=== PATIENT | female | born 1990 | race Caucasian/White ===

== ENCOUNTER 2018-01-03 20:49 | Emergency (ER) | payer OTHER, SELFPAY ==
[2018-01-03 20:59] VITALS: BP 140/96; PULSE 118; RESP 19; TEMP 37.1; O2SAT 100; BMI 36.9
--- NOTE | 2018-01-03 21:44 | PC.NURSE ---
pt reports being a total of 4 times. Three ended in miscarrage. current >6wk. reports bleeding alot since the 22 of november. Yesterday pt was seen at [facility] for waterfall vaginal bleeding that wouldn't stop. reports several very large clots discharged, uncertain of total number. pt thinks she is bleeding in vaginal cavity where it clots then my body pushes the clots out. Reports previous ended in miscarrage after several days of bleeding and cramping. No cramping this time. pt denies n/v/ fever, vision changes, pain, SOB.
[2018-01-03 21:45] LABS: RBC Urine 0-1/HPF (0-5/HPF); Squamous Epithelial Cell Urine 0-1 /HPF; WBC Urine 0-1/HPF (0-5/HPF)
[2018-01-03 21:46] LABS: Bacteria Urine Occasional (0-1); Calcium Oxalate Crystals Urine Few; Culture Indicated Urine Cult Not Indicated; Mucus Urine 2+ (Negative)
--- NOTE | 2018-01-03 22:37 | DI.US.S_ITS ---
PROCEDURE: US OB <= 14 WEEKS FETUS INDICATIONS: bleeding preg OUTSIDE/PRIOR DATING DATA: Last menstrual period (LMP): Unknown. LMP-based estimated date of delivery (EARLENE): N./A.. First dating scan (date and location): 01/03/18. Estimated date of delivery (EARLENE) from first dating scan: 08/25/18. TECHNIQUE: Real-time scanning was performed of the fetus and maternal pelvic organs, with image documentation. Endovaginal scanning was also performed to better visualize the fetus and maternal ovaries. COMPARISON: None. FINDINGS: Embryo: Intrauterine is identified position within the endocervical canal with crown-rump length measuring 7 mm corresponding to 6 weeks 4 days. heart rate measured 120 beats per minute. Measurement variability in dating: +/- 4 weeks by LMP, +/- 7 days by mean sac diameter (use before 6 weeks gestation if crown-rump length not able to be measured), +/- 5 days by crown-rump length (up to 8 weeks 6 days gestation), +/- 7 days by crown-rump length (up to 13 weeks 6 days gestation). Maternal organs: Ovaries are not imaged.. Limited images through the kidneys demonstrate no hydronephrosis. IMPRESSION: Findings consistent with spontaneous in progress. Note: These findings are concordant with the preliminary interpretation. Dictated by: Fazal Laws [facility] Interpreted: George Rubalcava MD on 01/04/2018 at 7:48 Approved by: George Rubalcava M.D. on 01/04/2018 at 9:30
--- NOTE | 2018-01-03 22:38 | ED.PREGNANCY ---
HPI - General Chief complaint: OB/Uterine Contractions Stated complaint: 6 WKS , STATES HEMORRAGING Time Seen by Provider: 01/03/18 22:09 Source: patient and old records reviewed Mode of arrival: ambulatory Limitations: no limitations History of Present Illness HPI Narrative: Patient is a 27-year-old female who presents with vaginal bleeding. She states that she is about 6 weeks . She had a significant amount of bleeding yesterday she was seen evaluated at [facility] she had an ultrasound and blood work. Ultrasound revealed she had an IUP 6 weeks 2 days and had a small hemorrhage adjacent to the gestational sac. And beta quant was 39,555. She says she was scared to go sleep last night she was bleeding through her clothes and through the pad at the emergency department yesterday. Today she does kind of felt weak and tired. The bleeding has slowed down significantly today. She has no cramping. She was instructed to return for evaluation today by her OB. They can't see her till Thursday. Patient : Yes Related Data Allergies Allergy/AdvReac Type Severity Reaction Status Date / Time ondansetron Allergy Unknown ITCHY Unverified 07/22/17 12:11 [From ZOFRAN ( HYDROCHLORIDE)] Review of Systems Review of Systems All systems reviewed & are unremarkable except as noted in HPI and below Constitutional Reports fatigue and Reports lethargy Eyes Denies change in vision, Denies eye discharge, Denies irritation and Denies loss of vision Cardiovascular Denies chest pain, Denies irregular heart rhythm, Denies lightheadedness, Denies palpitations, Denies dyspnea, Denies dyspnea on exertion and Denies orthopnea Respiratory Denies cough, Denies dyspnea, Denies dyspnea on exertion and Denies wheezing Genitourinary Reports as per HPI Musculoskeletal Denies back pain, Denies muscle weakness, Denies numbness and Denies tingling Neurologic Denies loss of vision, Denies numbness and Denies tingling Endocrine Reports fatigue and Denies palpitations Allergic/Immunologic Denies wheezing PMFSH - Past Medical History Medical history: Reports no medical history Surgical history: Reports other (D&C) 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 RESPIRATORY: Breath sounds equal bilaterally, no wheezes rales or rhonchi. ABDOMEN: Soft, nontender. Normoactive bowel sounds all 4 quadrants. No guarding or rebound. EXTREMITIES: Normal range of motion, no clubbing or edema. Neurovascularly intact NEUROLOGICAL: Alert and oriented x4.Normal gait and speech. Cranial nerves II through XII grossly intact. SKIN: Warm, dry, no laceration, no petechiae, no rashes or lesions. Course Orders Ordered: ED Orders 01/03/18 21:20 Urine Microscopic Stat 01/03/18 22:37 US OB <= 14 weeks fetus Stat 01/03/18 23:19 ABO RH Type Stat Complete Blood Count AUTO DIFF Stat Comprehensive Metabolic Panel Stat HCG Quantitative Stat Vital Signs - 8 hr 01/03/18 20:59 01/04/18 00:33 Temperature 98.7 F Pulse Rate 118 H 98 H Respiratory Rate 19 16 Blood Pressure 140/96 H Blood Pressure [Right Arm] 131/80 Pulse Oximetry 100 MDM - OB/Uterine Contractions Lab Data Attestation: I reviewed the patient's lab results. Result diagrams: 01/03/18 23:19 01/03/18 23:19 Lab Results 01/03/18 01/03/18 01/03/18 Range/Units 21:20 23:19 23:19 WBC 10.8 (4.5-11.0) X10^3/uL RBC 3.25 L (4.0-5.2) X10^6/uL Hgb 9.5 L (12.0-16.0) g/dL Hct 27.9 L (36-46) % MCV 86.0 (80-100) fL MCH 29.4 (26-34) PG MCHC 34.2 (30-36) % RDW 13.1 (11.6-14.8) % Plt Count 272 (150-400) X10^3/uL Neut % (Auto) 67.3 (50-75) % Lymph % (Auto) 23.7 L (25-40) % [place] % (Auto) 7.9 (3-14) % Eos % (Auto) 0.8 L (2-4) % Baso % (Auto) 0.3 (0-2) % Neut # (Auto) 7300 H (0668-5542) /uL Sodium 141 (137-145) mmol/L Potassium 3.7 (3.4-5.1) mmol/L Chloride 103 (98-107) mmol/L Carbon Dioxide 27 (22-32) mmol/L BUN 13 (7-17) mg/dL Creatinine 0.80 (0.52-1.04) mg/dL Estimated GFR > 60.0 (>60) mL/min BUN/Creatinine Ratio 16.3 (6-22) Glucose 107 H (70-100) mg/dL Calcium 9.3 (8.4-10.2) mg/dL Total Bilirubin 0.3 (0.2-1.3) mg/dL AST 28 (14-36) IU/L ALT 35 (9-52) IU/L Alkaline Phosphatase 68 (38-126) U/L Total Protein 6.8 (6.3-8.2) g/dL Albumin 4.0 (3.5-5.0) g/dL Globulin 2.8 (1.7-4.1) g/dL Albumin/Globulin Ratio 1.4 (1.0-2.8) HCG, Quant 44858 mIU/mL Urine RBC 0-1/hpf (0-5/HPF) Urine WBC 0-1/hpf (0-5/HPF) Ur Squamous Epith Cells 0-1 /hpf Calcium Oxalate Crystal Few H (None) Urine Bacteria Occasional (0-1) (None) Urine Mucus 2+ H (Negative) Ur Culture Indicated? Cult not indicated Micro UA Comment Not Reportable Blood Type 01/03/18 Range/Units 23:19 WBC (4.5-11.0) X10^3/uL RBC (4.0-5.2) X10^6/uL Hgb (12.0-16.0) g/dL Hct (36-46) % MCV (80-100) fL MCH (26-34) PG MCHC (30-36) % RDW (11.6-14.8) % Plt Count (150-400) X10^3/uL Neut % (Auto) (50-75) % Lymph % (Auto) (25-40) % [place] % (Auto) (3-14) % Eos % (Auto) (2-4) % Baso % (Auto) (0-2) % Neut # (Auto) (6498-0712) /uL Sodium (137-145) mmol/L Potassium (3.4-5.1) mmol/L Chloride (98-107) mmol/L Carbon Dioxide (22-32) mmol/L BUN (7-17) mg/dL Creatinine (0.52-1.04) mg/dL Estimated GFR (>60) mL/min BUN/Creatinine Ratio (6-22) Glucose (70-100) mg/dL Calcium (8.4-10.2) mg/dL Total Bilirubin (0.2-1.3) mg/dL AST (14-36) IU/L ALT (9-52) IU/L Alkaline Phosphatase (38-126) U/L Total Protein (6.3-8.2) g/dL Albumin (3.5-5.0) g/dL Globulin (1.7-4.1) g/dL Albumin/Globulin Ratio (1.0-2.8) HCG, Quant mIU/mL Urine RBC (0-5/HPF) Urine WBC (0-5/HPF) Ur Squamous Epith Cells Calcium Oxalate Crystal (None) Urine Bacteria (None) Urine Mucus (Negative) Ur Culture Indicated? 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 Calculated gestational age 6 weeks 4 days. Technologist states the maternal ovaries appear within normal limits. I do not have images documenting visualize of the ovaries. No free fluid. Due to caudal location of the gestational sac findings concerning for threatened spontaneous . Follow-up suggested. MDM Narrative Medical decision making narrative: Discussed at length with patient. This is now her 4th miscarriage I recommend further testing. His she understand she is actually recommended for testing already this was an unplanned . So now she will wait 6 weeks and get testing and hopefully referral. Her hemoglobin hematocrit have decreased from yesterday compared to [facility] as blood work. She is no longer tachycardic she did not receive IV fluids. In the bleeding has stopped. I have recommended close follow-up with her Ob she has an appointment this week. Discharge Plan Departure Patient Disposition: Home Clinical Impression: Threatened Discharge Date/Time: 01/04/18 01:13 Interventions: ED Discharge Assessment Last Done: 01/04/18 01:12 Instructions: DI for Threatened Activity Restrictions/Additional Instructions: *You have been diagnosed with threatened *What to do: Ultrasound does show a fetus at the cervical os and he will likely miscarry Hemoglobin 9.5 hematocrit 27 [id number] Need to have blood work rechecked in the next 2-3 days *Continue to take medications as directed *Follow up with your OB in 2-3 days *Return to ER if you should have increased bleeding, cramping, dizziness, lightheadedness or any new, worsening or concerning symptoms Referrals: Leisa Jasso MD [Physician] - Frida Dennis PA-C [Primary Care Provider] -
--- NOTE | 2018-01-03 22:41 | ED_ITS ---
HPI - General Chief complaint: OB/Uterine Contractions Stated complaint: 6 WKS , STATES HEMORRAGING Time Seen by Provider: 01/03/18 22:09 Source: patient and old records reviewed Mode of arrival: ambulatory Limitations: no limitations History of Present Illness HPI Narrative: Patient is a 27-year-old female who presents with vaginal bleeding. She states that she is about 6 weeks . She had a significant amount of bleeding yesterday she was seen evaluated at [facility] she had an ultrasound and blood work. Ultrasound revealed she had an IUP 6 weeks 2 days and had a small hemorrhage adjacent to the gestational sac. And beta quant was 39,555. She says she was scared to go sleep last night she was bleeding through her clothes and through the pad at the emergency department yesterday. Today she does kind of felt weak and tired. The bleeding has slowed down significantly today. She has no cramping. She was instructed to return for evaluation today by her OB. They can't see her till Thursday. Patient : Yes Related Data Allergies Allergy/AdvReac Type Severity Reaction Status Date / Time ondansetron Allergy Unknown ITCHY Unverified 07/22/17 12:11 [From ZOFRAN ( HYDROCHLORIDE)] Review of Systems Review of Systems All systems reviewed & are unremarkable except as noted in HPI and below Constitutional Reports fatigue and Reports lethargy Eyes Denies change in vision, Denies eye discharge, Denies irritation and Denies loss of vision Cardiovascular Denies chest pain, Denies irregular heart rhythm, Denies lightheadedness, Denies palpitations, Denies dyspnea, Denies dyspnea on exertion and Denies orthopnea Respiratory Denies cough, Denies dyspnea, Denies dyspnea on exertion and Denies wheezing Genitourinary Reports as per HPI Musculoskeletal Denies back pain, Denies muscle weakness, Denies numbness and Denies tingling Neurologic Denies loss of vision, Denies numbness and Denies tingling Endocrine Reports fatigue and Denies palpitations Allergic/Immunologic Denies wheezing PMFSH - Past Medical History Medical history: Reports no medical history Surgical history: Reports other (D&C) 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 RESPIRATORY: Breath sounds equal bilaterally, no wheezes rales or rhonchi. ABDOMEN: Soft, nontender. Normoactive bowel sounds all 4 quadrants. No guarding or rebound. EXTREMITIES: Normal range of motion, no clubbing or edema. Neurovascularly intact NEUROLOGICAL: Alert and oriented x4.Normal gait and speech. Cranial nerves II through XII grossly intact. SKIN: Warm, dry, no laceration, no petechiae, no rashes or lesions. Course Orders Ordered: ED Orders 01/03/18 21:20 Urine Microscopic Stat 01/03/18 22:37 US OB <= 14 weeks fetus Stat 01/03/18 23:19 ABO RH Type Stat Complete Blood Count AUTO DIFF Stat Comprehensive Metabolic Panel Stat HCG Quantitative Stat Vital Signs - 8 hr 01/03/18 20:59 01/04/18 00:33 Temperature 98.7 F Pulse Rate 118 H 98 H Respiratory Rate 19 16 Blood Pressure 140/96 H Blood Pressure [Right Arm] 131/80 Pulse Oximetry 100 MDM - OB/Uterine Contractions Lab Data Attestation: I reviewed the patient's lab results. Result diagrams: 01/03/18 23:19 01/03/18 23:19 Lab Results 01/03/18 01/03/18 01/03/18 Range/Units 21:20 23:19 23:19 WBC 10.8 (4.5-11.0) X10^3/uL RBC 3.25 L (4.0-5.2) X10^6/uL Hgb 9.5 L (12.0-16.0) g/dL Hct 27.9 L (36-46) % MCV 86.0 (80-100) fL MCH 29.4 (26-34) PG MCHC 34.2 (30-36) % RDW 13.1 (11.6-14.8) % Plt Count 272 (150-400) X10^3/uL Neut % (Auto) 67.3 (50-75) % Lymph % (Auto) 23.7 L (25-40) % [place] % (Auto) 7.9 (3-14) % Eos % (Auto) 0.8 L (2-4) % Baso % (Auto) 0.3 (0-2) % Neut # (Auto) 7300 H (9675-1210) /uL Sodium 141 (137-145) mmol/L Potassium 3.7 (3.4-5.1) mmol/L Chloride 103 (98-107) mmol/L Carbon Dioxide 27 (22-32) mmol/L BUN 13 (7-17) mg/dL Creatinine 0.80 (0.52-1.04) mg/dL Estimated GFR > 60.0 (>60) mL/min BUN/Creatinine Ratio 16.3 (6-22) Glucose 107 H (70-100) mg/dL Calcium 9.3 (8.4-10.2) mg/dL Total Bilirubin 0.3 (0.2-1.3) mg/dL AST 28 (14-36) IU/L ALT 35 (9-52) IU/L Alkaline Phosphatase 68 (38-126) U/L Total Protein 6.8 (6.3-8.2) g/dL Albumin 4.0 (3.5-5.0) g/dL Globulin 2.8 (1.7-4.1) g/dL Albumin/Globulin Ratio 1.4 (1.0-2.8) HCG, Quant 43683 mIU/mL Urine RBC 0-1/hpf (0-5/HPF) Urine WBC 0-1/hpf (0-5/HPF) Ur Squamous Epith Cells 0-1 /hpf Calcium Oxalate Crystal Few H (None) Urine Bacteria Occasional (0-1) (None) Urine Mucus 2+ H (Negative) Ur Culture Indicated? Cult not indicated Micro UA Comment Not Reportable Blood Type 01/03/18 Range/Units 23:19 WBC (4.5-11.0) X10^3/uL RBC (4.0-5.2) X10^6/uL Hgb (12.0-16.0) g/dL Hct (36-46) % MCV (80-100) fL MCH (26-34) PG MCHC (30-36) % RDW (11.6-14.8) % Plt Count (150-400) X10^3/uL Neut % (Auto) (50-75) % Lymph % (Auto) (25-40) % [place] % (Auto) (3-14) % Eos % (Auto) (2-4) % Baso % (Auto) (0-2) % Neut # (Auto) (1940-8479) /uL Sodium (137-145) mmol/L Potassium (3.4-5.1) mmol/L Chloride (98-107) mmol/L Carbon Dioxide (22-32) mmol/L BUN (7-17) mg/dL Creatinine (0.52-1.04) mg/dL Estimated GFR (>60) mL/min BUN/Creatinine Ratio (6-22) Glucose (70-100) mg/dL Calcium (8.4-10.2) mg/dL Total Bilirubin (0.2-1.3) mg/dL AST (14-36) IU/L ALT (9-52) IU/L Alkaline Phosphatase (38-126) U/L Total Protein (6.3-8.2) g/dL Albumin (3.5-5.0) g/dL Globulin (1.7-4.1) g/dL Albumin/Globulin Ratio (1.0-2.8) HCG, Quant mIU/mL Urine RBC (0-5/HPF) Urine WBC (0-5/HPF) Ur Squamous Epith Cells Calcium Oxalate Crystal (None) Urine Bacteria (None) Urine Mucus (Negative) Ur Culture Indicated? 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 Calculated gestational age 6 weeks 4 days. Technologist states the maternal ovaries appear within normal limits. I do not have images documenting visualize of the ovaries. No free fluid. Due to caudal location of the gestational sac findings concerning for threatened spontaneous . Follow-up suggested. MDM Narrative Medical decision making narrative: Discussed at length with patient. This is now her 4th miscarriage I recommend further testing. His she understand she is actually recommended for testing already this was an unplanned . So now she will wait 6 weeks and get testing and hopefully referral. Her hemoglobin hematocrit have decreased from yesterday compared to [facility] as blood work. She is no longer tachycardic she did not receive IV fluids. In the bleeding has stopped. I have recommended close follow-up with her Ob she has an appointment this week. Discharge Plan Departure Patient Disposition: Home Clinical Impression: Threatened Discharge Date/Time: 01/04/18 01:13 Interventions: ED Discharge Assessment Last Done: 01/04/18 01:12 Instructions: DI for Threatened Activity Restrictions/Additional Instructions: *You have been diagnosed with threatened *What to do: Ultrasound does show a fetus at the cervical os and he will likely miscarry Hemoglobin 9.5 hematocrit 27 [id number] Need to have blood work rechecked in the next 2-3 days *Continue to take medications as directed *Follow up with your OB in 2-3 days *Return to ER if you should have increased bleeding, cramping, dizziness, lightheadedness or any new, worsening or concerning symptoms Referrals: Leisa Jasso MD [Physician] - Frida Dennis PA-C [Primary Care Provider] -
[2018-01-03 23:32] LABS: Add Manual Diff / Slide Review NO; Basophils Percent Auto 0.3 % (0-2); Eosinophils Percent Auto 0.8 % (2-4); Hematocrit 27.9 % (36-46); Hemoglobin 9.5 g/dL (12.0-16.0); Lymphocytes Percent Auto 23.7 % (25-40); Mean Corpuscular HGB Conc 34.2 % (30-36); Mean Corpuscular Hemoglobin 29.4 PG (26-34); Monocytes Percent Auto 7.9 % (3-14); Neutrophils Absolute Auto 7300 /uL (3000-5900); Neutrophils Percent Auto 67.3 % (50-75); Platelet Count 272 X10^3/uL (150-400); Red Blood Cell Count 3.25 X10^6/uL (4.0-5.2); Red Cell Distribution Width 13.1 % (11.6-14.8); White Blood Cell Count 10.8 X10^3/uL (4.5-11.0)
[2018-01-03 23:52] LABS: Alanine Aminotransferase 35 IU/L (9-52); Albumin Globulin Ratio 1.4 (1.0-2.8); Alkaline Phosphatase 68 U/L (38-126); Aspartate Aminotransferase 28 IU/L (14-36); BUN Creatinine Ratio 16.3 (6-22); Bilirubin Total 0.3 mg/dL (0.2-1.3); Blood Urea Nitrogen 13 mg/dL (7-17); Calcium 9.3 mg/dL (8.4-10.2); Carbon Dioxide 27 mmol/L (22-32); Chloride 103 mmol/L (98-107); Estimated Glomerular Filt Rate > 60.0 mL/min (>60); Globulin 2.8 g/dL (1.7-4.1); Glucose 107 mg/dL (70-100); HEMOLYSIS < 15 (0-50); Potassium 3.7 mmol/L (3.4-5.1); Sodium 141 mmol/L (137-145); Total Protein 6.8 g/dL (6.3-8.2)
[2018-01-04 00:33] VITALS: BP 131/80; PULSE 98; RESP 16
[2018-01-04 00:45] LABS: HCG Quantitative /Beta subunit 40109 mIU/mL
== END 2018-01-04 01:13 | disposition home or self-care (01) ==
PROVIDERS: Emergency Provider Emergency Medicine; Family Provider Physician Assistant Medical; PCP Physician Assistant Medical
DX: O20.0 Threatened abortion (principal); Z3A.01 Less than 8 weeks gestation of pregnancy
CPT/HCPCS: 36415; 76801; 76817; 80053; 81003; 81015; 81025; 84702; 85025; 86900; 86901; 99282; 99284

== ENCOUNTER 2018-01-04 20:10 | Observation (INO) | payer OTHER, SELFPAY ==
[2018-01-04] VITALS (15 sets, daily range): BP systolic 98–143; BP diastolic 61–86; PULSE 95–130; RESP 11–23; TEMP 36.7–37.6; O2SAT 97–100; BMI 36.9
--- NOTE | 2018-01-04 | PATH_ITS ---
[facility] Accession Number: [id number] . 01 Material submitted: . PRODUCTS OF CONCEPTION . 02 Diagnosis: Specimen Designated Products of Conception: Fragments of immature placental tissue with avascular chorionic villi admixed with fragments of decidual tissue and gravid endometrium. MRV/01/07/2018 . 02 Electronically signed: . Femi Perez MD, Pathologist NPI- [id number] . 01 Gross description: . Received in formalin, labeled products of conception, are multiple fragments of red-brown and gaspar tissue (10.7 x 3.0 x 0.4 cm in aggregate). No tissue is identified. Filtered and entirely submitted in cassettes A1-A4. ([id number]) /MRV . 02 Pathologist provided ICD-10: O02.1 . 02 CPT . 676966 Performed at: 01 [facility] [address] [facility], [place], [place] [id number] MD Tyrell Durham MD Phone: [phone] Performed at: 02 [facility] [address] [place], [place] [id number] MD Toni Armijo MD Phone: [phone]
[2018-01-04 20:36] LABS: Add Manual Diff / Slide Review NO; Basophils Percent Auto 0.6 % (0-2); Eosinophils Percent Auto 0.6 % (2-4); Hemoglobin 8.1 g/dL (12.0-16.0); Lymphocytes Percent Auto 17.8 % (25-40); Mean Corpuscular HGB Conc 33.7 % (30-36); Mean Corpuscular Hemoglobin 28.9 PG (26-34); Mean Corpuscular Volume 85.6 fL (80-100); Monocytes Percent Auto 7.8 % (3-14); Neutrophils Absolute Auto 9600 /uL (3000-5900); Neutrophils Percent Auto 73.2 % (50-75); Platelet Count 263 X10^3/uL (150-400); Red Blood Cell Count 2.81 X10^6/uL (4.0-5.2); Red Cell Distribution Width 13.5 % (11.6-14.8); White Blood Cell Count 13.1 X10^3/uL (4.5-11.0)
--- NOTE | 2018-01-04 20:37 | ED.PREGNANCY ---
HPI - General Chief complaint: Vaginal Bleeding Stated complaint: states blood loss Time Seen by Provider: 01/04/18 20:20 Source: patient and family Mode of arrival: ambulatory Limitations: no limitations History of Present Illness HPI Narrative: 27-year-old female, at 6 weeks presents with significant vaginal bleeding this afternoon. She started having pelvic cramping and spotting a few days ago and was evaluated at an outside facility. She presented to our emergency department yesterday under similar circumstances and complained of some dizziness and lightheadedness and the setting of increasing vaginal bleeding and some vaginal fullness. She had an ultrasound noting an IUP at 6 weeks and the endocervical canal and threatened . She was sent home and encouraged to follow up closely with Dr. Romero CROWE Complaint: vaginal bleeding Onset (ago): hour(s) Pain Consistency: constant Location: pelvis Severity: moderate Quality: Aching Relieving factors: none Exacerbating factors: none Associated symptoms: vaginal bleeding, malaise, shortness of breath and weakness Vaginal bleeding: heavy Patient : Yes OB History - Current : no complications OB History - Previous Pregnancies: miscarriage care: followed by OB Related Data : 4 Para: 0 Previous Rx's Medication Instructions Recorded oxycodone-acetaminophen [Percocet] 2 tab PO Q4-6H PRN #20 tab 01/04/18 Allergies Allergy/AdvReac Type Severity Reaction Status Date / Time ondansetron Allergy Unknown ITCHY Unverified 07/22/17 12:11 [From ZOFRAN ( HYDROCHLORIDE)] Review of Systems Review of Systems All systems reviewed & are unremarkable except as noted in HPI and below Constitutional Denies chills, Denies fever(s), Denies lethargy and Denies weakness Eyes Denies change in vision, Denies eye discharge, Denies irritation and Denies loss of vision ENT Ears, Nose, Mouth, and Throat: Denies change in voice, Denies neck pain and Denies sore throat Cardiovascular Denies chest pain, Denies irregular heart rhythm, Denies lightheadedness, Denies palpitations, Denies dyspnea, Denies dyspnea on exertion and Denies orthopnea Respiratory Denies cough, Denies dyspnea, Denies dyspnea on exertion and Denies wheezing Gastrointestinal Gastrointestinal: Denies abdominal pain, Denies change in bowel habits, Denies diarrhea, Denies nausea and Denies vomiting Genitourinary Reports abnormal vaginal bleeding, Denies hematuria, Denies flank pain, Denies urinary incontinence and Denies urinary urgency Musculoskeletal Denies neck pain Integumentary/Breasts Denies pruritus, Denies erythema, Denies rash and Denies wounds Neurologic Denies confusion, Denies loss of vision and Denies weakness Psychiatric Denies anxiety, Denies confusion, Denies depression, Denies homicidal ideation and Denies suicidal ideation Endocrine Denies palpitations Hematologic/Lymphatic Denies easy bruising Allergic/Immunologic Denies wheezing PMFSH - Past Medical History Medical history: Reports no medical history Surgical history: Reports other (D&C) Patient : Yes Family history: Reports other (No known family history of multiple miscarriages) Exam Narrative Exam Narrative: 27-year-old female obviously uncomfortable Initial Vital Signs Initial Vital Signs: Vital Signs Temperature 98.8 F 01/04/18 20:20 Pulse Rate 109 H 01/04/18 20:20 Respiratory Rate 20 01/04/18 20:20 Blood Pressure 143/81 H 01/04/18 20:20 Pulse Oximetry 100 01/04/18 20:20 Const General: cooperative and well developed Nutritional Appearance: well nourished Orientation: alert, awake, oriented x3 and not confused HENW[place] Head: normocephalic and atraumatic Ears: external ears normal and TM's normal bilaterally Nose: external nose normal and No nasal discharge Face and sinus: sinuses nontender, face symmetric, no sinus tenderness and No dry mucous membranes Mouth: oral mucosae normal and moist mucous membranes Teeth and gingiva: dentition normal Throat: tonsils normal and uvula midline Eyes General: appearance normal, both eyes and all related structures Eyelids: eyelids normal Conjunctivae: conjunctivae normal Sclera: sclerae normal Pupils: PERRL EOM: EOM intact bilaterally Neck Neck: normal visual inspection, trachea midline, No lymphadenopathy, No midline deformity and No JVD Lymphatic: No lymphedema Chest Chest: normal inspection of the chest Resp Effort & Inspection: normal respiratory effort, able to speak in complete sentences, no respiratory distress and no use of accessory muscles Auscultation: clear to auscultation bilaterally, no rales, no rhonchi and no wheezes Cardio Rate: regular rate Rhythm: regular rhythm Heart Sounds: no click, no gallops, no murmurs and no rubs Pulses: normal peripheral pulses GI Inspection: non-distended Palpation: soft, no hepatosplenomegaly, No guarding, No pulsatile mass and No tender Auscultation: normal bowel sounds Speculum Exam - Vagina: vaginal bleeding OB/External & Speculum: vaginal bleeding Back/Spine/Pelvis Back: No CVA tenderness Cervical Spine: cervical ROM normal and No pain with cervical ROM Thoracic/Lumbar Spine: thoracic and lumbar spine normal to inspection Skin General: no rashes or lesions noted, No jaundice and No petechiae Neuro General: alert, oriented x3, gait normal and no focal motor deficits Speech: speech normal Extrem General: full ROM, no clubbing, cyanosis or edema, no pedal edema and no calf tenderness Psych Appearance: well kempt Mental Status: mental status grossly normal Attitude: cooperative Thought Content: normal and suicidality Judgment: judgment good Course Orders Ordered: Discontinued Medications Acetaminophen (Tylenol) 325 mg PO NOW PRN PRN Reason: Pain, Mild (1-3) Hydrocodone Bitart/Acetaminophen (Hinkle 5/325) 1 tab PO Q30MIN PRN PRN Reason: Mild or moderate pain Fentanyl (Sublimaze) 25 mcg IV Q5MIN PRN PRN Reason: Pain, Mild (1-3) Last Admin: 01/04/18 23:23 Dose: 25 mcg Lactated Ringer's (Lactated Ringers) 1,000 mls @ 42 mls/hr IV CONT YOBANY Metoclopramide HCl (Reglan) 10 mg IV NOW PRN PRN Reason: Nausea And Vomiting Last Admin: 01/04/18 23:17 Dose: 10 mg Consultations Consultation #1: Immediately after performing pelvic exam I spoke with the patient's home tnt line supervisor, Dr. Jasso, whom said they do not typically provide fall to the circumstances and she is quite far away, she then recommends calling the local group Consultation #2: Dr. Delgado happy to help care for this patient and requests we call in the OR Vital Signs - 8 hr 01/04/18 23:05 01/04/18 23:07 01/04/18 23:12 Temperature Pulse Rate 130 H 130 H 124 H Respiratory Rate 11 L 12 11 L Blood Pressure 98/67 114/85 109/68 Pulse Oximetry 100 98 99 01/04/18 23:16 01/04/18 23:21 01/04/18 23:27 Temperature 98.6 F Pulse Rate 107 H 98 H 102 H Respiratory Rate 13 15 12 Blood Pressure 98/67 99/68 99/64 Pulse Oximetry 98 97 98 01/04/18 23:31 01/04/18 23:37 01/04/18 23:41 Temperature 98.1 F Pulse Rate 101 H 98 H 95 H Respiratory Rate 20 15 15 Blood Pressure 104/61 102/68 105/68 Pulse Oximetry 98 98 98 01/04/18 23:51 01/04/18 23:59 01/05/18 00:45 Temperature 98.2 F 99.3 F Pulse Rate 98 H 99 H 102 H Respiratory Rate 16 19 12 Blood Pressure 112/76 109/71 117/67 Pulse Oximetry 100 100 100 MDM - OB/Uterine Contractions Lab Data Result diagrams: 01/04/18 20:30 01/04/18 20:30 Lab Results 01/04/18 01/04/18 01/04/18 Range/Units 20:30 20:30 20:30 WBC 13.1 H (4.5-11.0) X10^3/uL RBC 2.81 L (4.0-5.2) X10^6/uL Hgb 8.1 L (12.0-16.0) g/dL Hct 24.0 L (36-46) % MCV 85.6 (80-100) fL MCH 28.9 (26-34) PG MCHC 33.7 (30-36) % RDW 13.5 (11.6-14.8) % Plt Count 263 (150-400) X10^3/uL Neut % (Auto) 73.2 (50-75) % Lymph % (Auto) 17.8 L (25-40) % [place] % (Auto) 7.8 (3-14) % Eos % (Auto) 0.6 L (2-4) % Baso % (Auto) 0.6 (0-2) % Neut # (Auto) 9600 H (0110-3459) /uL Sodium 139 (137-145) mmol/L Potassium 3.5 (3.4-5.1) mmol/L Chloride 102 (98-107) mmol/L Carbon Dioxide 25 (22-32) mmol/L BUN 11 (7-17) mg/dL Creatinine 0.80 (0.52-1.04) mg/dL Estimated GFR > 60.0 (>60) mL/min BUN/Creatinine Ratio 13.8 (6-22) Glucose 103 H (70-100) mg/dL Calcium 9.2 (8.4-10.2) mg/dL Total Bilirubin 0.3 (0.2-1.3) mg/dL AST 29 (14-36) IU/L ALT 42 (9-52) IU/L Alkaline Phosphatase 66 (38-126) U/L Total Protein 6.8 (6.3-8.2) g/dL Albumin 4.1 (3.5-5.0) g/dL Globulin 2.7 (1.7-4.1) g/dL Albumin/Globulin Ratio 1.5 (1.0-2.8) HCG, Quant 90968 mIU/mL Blood Type O Positive Antibody Screen Negative Crossmatch See Detail Discharge Plan Departure Patient Disposition: Admitted as Observation Clinical Impression: Abnormal vaginal bleeding Discharge Date/Time: 01/04/18 22:22 Interventions: ED Discharge Assessment Last Done: 01/04/18 22:30 Admit Date/Time: 01/04/18 21:59 Admit Provider: Lisa Delgado
--- NOTE | 2018-01-04 20:37 | PC.NURSE ---
pt seen here yesterday and diagnosed with threatened . pt has been bleeding for a few days. Had a DNC 11/11. this is the fourth miscarrage pt has experienced. pt reports being lightheaded and short of breath when trying to move around. she reports she has little spots and flashes in her vision.
--- NOTE | 2018-01-04 20:44 | DI.US.S_ITS ---
PROCEDURE: US PELVIC COMPLETE INDICATIONS: SAB IN PROGRESS; BLEEDING TECHNIQUE: Real-time scanning was performed of the pelvic organs, with image documentation. Additional endovaginal scanning was necessary due to incomplete visualization of the adnexal and endometrial structures by transabdominal scanning. COMPARISON: [facility], US, US OB <= 14 WEEKS FETUS, 01/03/2018, 23:09. FINDINGS: Transabdominal scanning: Limited scanning through the kidneys shows no hydronephrosis. No pathologic free abdominal or pelvic fluid. Endovaginal scanning: Uterus: Uterus is normal in size at 9.8 x 4.0 x 5.5 cm. The endometrium measures 12 mm in combined thickness. There is fluid within the endometrium cavity of the lowering uterine segment. Fluid is also present within the endovaginal canal. Ovaries: Not evaluated. IMPRESSION: Thickened endometrium with endometrial fluid in the lower uterine segment and in the vaginal canal, consistent with ongoing spontaneous . Dictated by: Rai Landis M.D. on 01/04/2018 at 21:50 Approved by: Rai Landis M.D. on 01/04/2018 at 21:55
[2018-01-04 20:55] LABS: Alanine Aminotransferase 42 IU/L (9-52); Albumin 4.1 g/dL (3.5-5.0); Albumin Globulin Ratio 1.5 (1.0-2.8); Alkaline Phosphatase 66 U/L (38-126); Aspartate Aminotransferase 29 IU/L (14-36); BUN Creatinine Ratio 13.8 (6-22); Bilirubin Total 0.3 mg/dL (0.2-1.3); Blood Urea Nitrogen 11 mg/dL (7-17); Calcium 9.2 mg/dL (8.4-10.2); Carbon Dioxide 25 mmol/L (22-32); Chloride 102 mmol/L (98-107); Estimated Glomerular Filt Rate > 60.0 mL/min (>60); Globulin 2.7 g/dL (1.7-4.1); Glucose 103 mg/dL (70-100); HEMOLYSIS < 15 (0-50); Potassium 3.5 mmol/L (3.4-5.1); Sodium 139 mmol/L (137-145); Total Protein 6.8 g/dL (6.3-8.2)
--- NOTE | 2018-01-04 21:02 | PC.NURSE ---
Stand by [facility] for pelvic exam with Dr. Drummond. Pt tolerated well. US now at bedside. Large amt red blood present.
[2018-01-04 21:36] LABS: HCG Quantitative /Beta subunit 36490 mIU/mL
--- NOTE | 2018-01-04 22:28 | PC.NURSE ---
PBRC started then surgery RAY Hernandez picked up pt and transported to surgery with blood continuing to run. Mary aware of 20 min vital check.
--- NOTE | 2018-01-04 22:30 | PC.NURSE ---
Blood continuing in surgery.
--- NOTE | 2018-01-04 22:59 | PM.PREOP ---
Pre-operative Note Interval Note Pre-op Check: Yes History & Physical exam performed today by Physician Changes: No
--- NOTE | 2018-01-04 22:59 | PM.GYNHP.1 ---
History of Present Illness Narrative: Viraj RAUSCH is a 27 year old female 4 para 0 with an incomplete miscarriage [facility] Social History Smoking Status: Former smoker Meds Home Medications Medication Instructions Recorded Confirmed Type oxycodone-acetaminophen [Percocet] 2 tab PO Q4-6H PRN #20 tab 01/04/18 Rx Allergies Allergy/AdvReac Type Severity Reaction Status Date / Time ondansetron Allergy Unknown ITCHY Unverified 07/22/17 12:11 [From ZOFRAN ( HYDROCHLORIDE)] Exam Vital Signs (past 8 hours): - 01/04/18 20:20 01/04/18 20:36 01/04/18 21:01 Temperature 98.8 F Pulse Rate 109 H 97 H 117 H Respiratory Rate 20 23 17 Blood Pressure 143/81 H Blood Pressure [Left Arm] 113/67 129/74 Pulse Oximetry 100 99 01/04/18 22:09 Temperature 99.6 F Pulse Rate 110 H Respiratory Rate 16 Blood Pressure 136/86 Blood Pressure [Left Arm] Pulse Oximetry Oxygen Delivery Method Room Air Narrative Exam Narrative: Generally: A well-developed, well-nourished female, in mild distress secondary to cramping Lungs: Clear to auscultation bilaterally Cardiovascular: Regular rate and rhythm Abdomen: Soft, slightly tender to deep palpation Bimanual exam: An 8 week size anteverted uterus. Large clots in the vagina and in the bed. Objective Labs Result Diagrams: 01/04/18 20:30 01/04/18 20:30 Labs: Laboratory Results - last 24 hr 01/04/18 01/04/18 01/04/18 20:30 20:30 20:30 WBC 13.1 H RBC 2.81 L Hgb 8.1 L Hct 24.0 L MCV 85.6 MCH 28.9 MCHC 33.7 RDW 13.5 Plt Count 263 Neut % (Auto) 73.2 Lymph % (Auto) 17.8 L [place] % (Auto) 7.8 Eos % (Auto) 0.6 L Baso % (Auto) 0.6 Neut # (Auto) 9600 H Sodium 139 Potassium 3.5 Chloride 102 Carbon Dioxide 25 BUN 11 Creatinine 0.80 Estimated GFR > 60.0 BUN/Creatinine Ratio 13.8 Glucose 103 H Calcium 9.2 Total Bilirubin 0.3 AST 29 ALT 42 Alkaline Phosphatase 66 Total Protein 6.8 Albumin 4.1 Globulin 2.7 Albumin/Globulin Ratio 1.5 HCG, Quant 00940 Blood Type O Positive Antibody Screen Negative Crossmatch See Detail Assessment & Plan (1) Incomplete : Current visit: Yes Status: Acute Plan: Assessment/Plan Narrative: Assessment: 27-year-old 4 para 0 with an incomplete AB Hemorrhage Significant drop in hematocrit with symptoms Plan: Suction D&C The risks, benefits, and alternatives to the procedure were explained to the patient. The risks including bleeding, infection, and uterine perforation. She understands these risks and agrees to proceed. A full capital P AR-Q was held and consent form was signed.
--- NOTE | 2018-01-04 23:02 | P.HPOB_ITS ---
History of Present Illness Narrative: Viraj RAUSCH is a 27 year old female 4 para 0 with an incomplete miscarriage [facility] Social History Smoking Status: Former smoker Meds Home Medications Medication Instructions Recorded Confirmed Type oxycodone-acetaminophen [Percocet] 2 tab PO Q4-6H PRN #20 tab 01/04/18 Rx Allergies Allergy/AdvReac Type Severity Reaction Status Date / Time ondansetron Allergy Unknown ITCHY Unverified 07/22/17 12:11 [From ZOFRAN ( HYDROCHLORIDE)] Exam Vital Signs (past 8 hours): - 01/04/18 20:20 01/04/18 20:36 01/04/18 21:01 Temperature 98.8 F Pulse Rate 109 H 97 H 117 H Respiratory Rate 20 23 17 Blood Pressure 143/81 H Blood Pressure [Left Arm] 113/67 129/74 Pulse Oximetry 100 99 01/04/18 22:09 Temperature 99.6 F Pulse Rate 110 H Respiratory Rate 16 Blood Pressure 136/86 Blood Pressure [Left Arm] Pulse Oximetry Oxygen Delivery Method Room Air Narrative Exam Narrative: Generally: A well-developed, well-nourished female, in mild distress secondary to cramping Lungs: Clear to auscultation bilaterally Cardiovascular: Regular rate and rhythm Abdomen: Soft, slightly tender to deep palpation Bimanual exam: An 8 week size anteverted uterus. Large clots in the vagina and in the bed. Objective Labs Result Diagrams: 01/04/18 20:30 01/04/18 20:30 Labs: Laboratory Results - last 24 hr 01/04/18 01/04/18 01/04/18 20:30 20:30 20:30 WBC 13.1 H RBC 2.81 L Hgb 8.1 L Hct 24.0 L MCV 85.6 MCH 28.9 MCHC 33.7 RDW 13.5 Plt Count 263 Neut % (Auto) 73.2 Lymph % (Auto) 17.8 L [place] % (Auto) 7.8 Eos % (Auto) 0.6 L Baso % (Auto) 0.6 Neut # (Auto) 9600 H Sodium 139 Potassium 3.5 Chloride 102 Carbon Dioxide 25 BUN 11 Creatinine 0.80 Estimated GFR > 60.0 BUN/Creatinine Ratio 13.8 Glucose 103 H Calcium 9.2 Total Bilirubin 0.3 AST 29 ALT 42 Alkaline Phosphatase 66 Total Protein 6.8 Albumin 4.1 Globulin 2.7 Albumin/Globulin Ratio 1.5 HCG, Quant 19198 Blood Type O Positive Antibody Screen Negative Crossmatch See Detail Assessment & Plan (1) Incomplete : Current visit: Yes Status: Acute Plan: Assessment/Plan Narrative: Assessment: 27-year-old 4 para 0 with an incomplete AB Hemorrhage Significant drop in hematocrit with symptoms Plan: Suction D&C The risks, benefits, and alternatives to the procedure were explained to the patient. The risks including bleeding, infection, and uterine perforation. She understands these risks and agrees to proceed. A full capital P AR-Q was held and consent form was signed.
--- NOTE | 2018-01-04 23:10 | SUR.OPER ---
Lithotomy on padded OR bed, head on pillow, arms secured on padded arm boards at <90 degrees abduction. Legs secured in padded yellow fins stirrups.
[2018-01-04] MEDS: METOCLOPRAMIDE 10 MG/2 ML INJ IV (23:17)
[2018-01-04] MEDS: fentaNYL 100 MCG/2 ML INJ 25 MCG IV (23:23)
--- NOTE | 2018-01-04 23:49 | SUR.PHASEI ---
2305 To PACU, arousing spontaneously, stated That's the fastest I've ever woken up. Moving freely, reminded to hold arm still for BP. Skin warm and dry, resp even and regular. C/O sore throat and feeling like she was still bleeding vaginally. 2310 Moderate amount of red drainage on peripad with half-dollar sized clot. Dr. Delgado informed, no orders given. 2317 Rx given for c/o nausea. Patient then stated that she wasn't sure if it was nausea or just the sore throat 2323 Rx given for c/o abdominal pain. Vag bleeding: one more clot, pad nearly saturated. 2340 No change in bryn-pad/vaginal bleeding, Patient drowsy. Skin warm and dry, 2345 Dr. Delgado checked in prior to departure, informed her that patient is stable. 2357 Flushing blood tubing. Patient sleeping, BP and HR as expected with fluid/transfusion.
--- NOTE | 2018-01-05 00:36 | SUR.PHASEI ---
0012 to acute care in bed, arouses easily to voice, mild cramping, sore throat is her bigger irritation. Report given to RN, transferred patient to bed. Call light given, Bed down and locked. Clothes were taken by upon pick-up from ER
--- NOTE | 2018-01-05 00:38 | SUR.PHASEI ---
0038 Recieved call from floor RN that patient was to be discharged to home. The orders were not seen in the computer when checked. CLAY TEMPERER will discharge patient from floor.
[2018-01-05 00:45] VITALS: BP 117/67; PULSE 102; RESP 12; TEMP 37.4; O2SAT 100
--- NOTE | 2018-01-05 00:57 | SUR.PHASEII ---
Taken to Acute care as opposed to phase II; Patient stable, scant red vag flow on bryn-pad. IV's dc'd x2. Fluids given. Spouse at bedside assisting patient with dressing and ambulating to bathroom.
--- NOTE | 2018-01-05 01:16 | SUR.PHASEII ---
Discharged from phase II (from acute care). Patient stable.
--- NOTE | 2018-01-05 18:51 | P.OP_ITS ---
Operative Date/Time/Diagnoses Date of procedure: 01/04/18 Time of procedure: 23:20 Pre-op diagnosis: Incomplete miscarriage Post-op diagnosis: same Procedure: Procedures Operation Date: 01/04/18 22:35 Actual Procedures Side Surgeon p Dilation and Curettage Lisa Delgado MD Indications: Incomplete miscarriage Brisk vaginal bleeding Significant drop in hematocrit with symptoms Surgeon: Lisa Delgado Anesthesia Type: General Operative Notes Findings: 8 week size anteverted uterus Large amount of products of conception Closure Type: not applicable Specimen(s): uterine contents (POC) Applied: catheter (In and out) Estimated blood loss (mL): 150 Blood products transfused: none Procedure in detail: After informed consent was obtained, the patient was taken to the operating room where she was placed in the dorsal supine position. After adequate general endotracheal anesthesia was achieved, she was placed in the dorsal lithotomy position, and prepped and draped in the usual sterile fashion. A time-out was performed. A bivalve speculum was placed into the vagina. A single-tooth tenaculum was placed on the anterior lip of the cervix. The cervix was open. The number 8 curved plastic curette passed easily into the endometrial cavity. Several passes with suction revealed a large amount of tissue and blood. The plastic curette was removed. Sharp curettage was performed yielding a large amount of tissue. Several more passes with suction revealed blood only. The instruments were removed from the uterus. The single- tooth tenaculum was removed from the anterior lip of the cervix. The bivalve speculum was removed from the vagina. Sponge, lap, and instrument counts were correct x2. The patient tolerated the procedure well, and was taken to PACU in stable condition. Complications: none Post-operative Condition: stable Disposition: PACU Plan for aftercare: Home after recovery
== END 2018-01-05 01:08 | disposition home or self-care (01) ==
LOC: ED 20:16 → AC 22:00
PROVIDERS: Admitting Provider Obstetrics & Gynecology; Emergency Provider Emergency Medicine; Family Provider Physician Assistant Medical; PCP Physician Assistant Medical; Visit Provider Obstetrics & Gynecology
PROC: (CPT 58120; principal; 2018-01-04 22:35)
DX: O03.4 Incomplete spontaneous abortion without complication (principal); Z3A.01 Less than 8 weeks gestation of pregnancy
CPT/HCPCS: 59812; 36430; 36591; 76830; 76856; 80053; 84702; 85025; 86850; 86900; 86901; 88305; 99282; 99284; G0378; P9016; J0330; J2250; J2590; J2704; J2765; J3010

== ENCOUNTER 2019-04-28 12:32 | Emergency (ER) | payer OTHER, SELFPAY ==
[2019-04-28 12:49] VITALS: BP 152/102; PULSE 105; RESP 16; TEMP 37.3; O2SAT 98; BMI 41.0
--- NOTE | 2019-04-28 12:51 | DI.US.S_ITS ---
PROCEDURE: US OB <= 14 WEEKS FETUS INDICATIONS: VAG BLEEDING 6 WEEKS PREG OUTSIDE/PRIOR DATING DATA: Last menstrual period (LMP): 03/17/19. LMP-based estimated date of delivery (EARLENE): 12/22/19. First dating scan (date and location): 04/28/19. Estimated date of delivery (EARLENE) from first dating scan: 12/24/19. TECHNIQUE: Real-time scanning was performed of the fetus and maternal pelvic organs, with image documentation. Endovaginal scanning was also performed to better visualize the fetus and maternal ovaries. COMPARISON: [facility], , OB <= 14 WEEKS FETUS, 01/03/2018, 23:09. FINDINGS: Embryo: A single intrauterine gestational sac is identified it has a mean gestational sac diameter of 1.03 cm, which correlates with an estimated gestational age of 5 weeks 5 days (EARLENE 12/24/19). A small yolk sac is visualized. However, a pole is not definitely seen, at this time. A small implantation hemorrhage is incidentally noted surrounding the gestational sac. Maternal organs: Ovaries are not enlarged or adequately evaluated. Corpus luteum on the right may be present. 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 Limited images through the kidneys demonstrate no hydronephrosis. IMPRESSION: 1. Single intrauterine gestational sac has an estimated gestational age of approximately 5 weeks 5 days (sonographic EARLENE 12/24/19), which is concordant with the LMP dates. 2. A pole is not yet identified. Followup imaging in 1 week is recommended to evaluate for viability. 3. Small implantation hemorrhage. 4. 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 Dictated by: Long Rolon M.D. on 04/28/2019 at 13:58 Approved by: Long Rolon M.D. on 04/28/2019 at 14:02
[2019-04-28 13:55] LABS: Add Manual Diff / Slide Review NO; Basophils Absolute Auto 0 /uL (0-100); Basophils Percent Auto 0.6 % (0-2); Eosinophils Absolute Auto 200 /uL (0-450); Eosinophils Percent Auto 1.9 % (2-4); Hematocrit 40.6 % (36-46); Hemoglobin 13.5 g/dL (12.0-16.0); Lymphocytes Absolute Auto 2000 /uL (1100-4500); Lymphocytes Percent Auto 22.1 % (25-40); Mean Corpuscular HGB Conc 33.2 % (30-36); Mean Corpuscular Hemoglobin 28.3 PG (26-34); Mean Corpuscular Volume 85.5 fL (80-100); Monocytes Absolute Auto 600 /uL (0-900); Monocytes Percent Auto 6.6 % (3-14); Neutrophils Absolute Auto 6100 /uL (1500-7000); Neutrophils Percent Auto 68.8 % (50-75); Platelet Count 308 X10^3/uL (150-400); Red Blood Cell Count 4.75 X10^6/uL (4.0-5.2); White Blood Cell Count 8.8 X10^3/uL (4.5-11.0)
[2019-04-28 14:08] LABS: Alanine Aminotransferase 48 IU/L (<35); Albumin 4.6 g/dL (3.5-5.0); Albumin Globulin Ratio 1.4 (1.0-2.8); Alkaline Phosphatase 91 U/L (38-126); Aspartate Aminotransferase 41 IU/L (14-36); BUN Creatinine Ratio 18.3 (6-22); Bilirubin Total 0.4 mg/dL (0.2-1.3); Blood Urea Nitrogen 11 mg/dL (7-17); Calcium 9.8 mg/dL (8.4-10.2); Carbon Dioxide 25 mmol/L (22-32); Chloride 102 mmol/L (98-107); Estimated Glomerular Filt Rate > 60.0 mL/min (>60); Globulin 3.4 g/dL (1.7-4.1); Glucose 91 mg/dL (70-100); HEMOLYSIS < 15 (0-50); Sodium 138 mmol/L (137-145)
[2019-04-28 14:24] LABS: HCG Quantitative /Beta subunit 8365.7 mIU/mL
--- NOTE | 2019-04-28 15:04 | ED_ITS ---
HPI - <Mary Sol PA-C - Last Filed: 04/28/19 20:53> General Chief complaint: OB/Uterine Contractions Stated complaint: 6 WEEKS PREG AND POSSIBLE MISCARRIAGE Time Seen by Provider: 04/28/19 15:03 Source: patient Mode of arrival: Ambulatory Limitations: no limitations History of Present Illness HPI Narrative: This 29-year-old female comes to ED secondary to concern for pending miscarriage, states her OB directed her. She states that LM P was March 17. She states that she has had pelvic cramping throughout this , maybe slightly worse in the last couple of days, similar in quality. She states that she started have some dark brown spotting on , and has had intermittent bright red spotting since Thursday. She states that she has not had any persistent nausea or vomiting. She denies any fever or urinary symptoms. She has had 4 miscarriages previously. She states she has had some cough and cold symptoms recently which seemed to be improving, no other +on ROS. Related Data Allergies Allergy/AdvReac Type Severity Reaction Status Date / Time ondansetron Allergy Unknown ITCHY Verified 04/28/19 12:49 [From ZOFRAN ( HYDROCHLORIDE)] Review of Systems <Mary Sol PA-C - Last Filed: 04/28/19 20:53> Review of Systems ROS Unobtainable: All systems reviewed & are unremarkable except as noted in HPI and below PMFSH - <Mary Sol PA-C - Last Filed: 04/28/19 20:53> Past Medical History Medical history: Reports other (Fibromyalgia) Surgical history: Reports other (D&C) Family History Family history: Reports other (No known family history of multiple miscarriages) Exam <Mary Sol PA-C - Last Filed: 04/28/19 20:53> Narrative Exam Narrative: GENERAL APPEARANCE: Patient sitting comfortably, in no distress. HEENT: PERRL, EOMI NECK: Supple LUNGS: Clear to auscultation bilaterally. HEART: Rate and rhythm regular, normal S1 and S2, no S3 or S4. ABDOMEN: Soft, nondistended, bowel sounds present x 4 quadrants, no masses palpable, mild suprapubic tenderness without guarding or rebound EXTREMITIES: No edema DERMATOLOGIC: No jaundice or exanthem NEUROLOGIC: Alert and oriented with normal speech and coordination : Normal external genitalia, cervical os appears to be closed with very scant brown discharge/blood Initial Vital Signs Initial Vital Signs: Vital Signs Temperature 99.2 F 04/28/19 12:49 Pulse Rate 105 H 04/28/19 12:49 Respiratory Rate 16 04/28/19 12:49 Blood Pressure 152/102 H 04/28/19 12:49 Pulse Oximetry 98 04/28/19 12:49 <Maritza Sanchez MD - Last Filed: 05/02/19 12:19> Initial Vital Signs Initial Vital Signs: Vital Signs Temperature 99.2 F 04/28/19 12:49 Pulse Rate 105 H 04/28/19 12:49 Respiratory Rate 16 04/28/19 12:49 Blood Pressure 152/102 H 04/28/19 12:49 Pulse Oximetry 98 04/28/19 12:49 Course <Mary Sol PA-C - Last Filed: 04/28/19 20:53> Course Additional Information: I spoke with Dr. Sanabria underground mining section foreman for Dr. Card, reviewed findings and history and he agrees that patient needs close follow-up. Patient will rest at home tonight, call their 1st thing in the morning so she can have repeat hCG and follow-up visit. Orders Ordered: ED Orders 04/28/19 12:51 US OB <= 14 weeks fetus Stat 04/28/19 13:45 ABO RH Type Stat Complete Blood Count AUTO DIFF Stat Comprehensive Metabolic Panel Stat HCG Quantitative /Beta subunit Stat Vital Signs Vital signs: Vital Signs - 8 hr 04/28/19 15:37 Pulse Rate 91 H Respiratory Rate 16 Blood Pressure [Left Arm] 144/75 H Pulse Oximetry 100 <Maritza Sanchez MD - Last Filed: 05/02/19 12:19> Orders Ordered: ED Orders 04/28/19 12:51 US OB <= 14 weeks fetus Stat 04/28/19 13:45 ABO RH Type Stat Complete Blood Count AUTO DIFF Stat Comprehensive Metabolic Panel Stat HCG Quantitative /Beta subunit Stat Vital Signs Vital signs: Vital Signs - 8 hr 04/28/19 15:37 Pulse Rate 91 H Respiratory Rate 16 Blood Pressure [Left Arm] 144/75 H Pulse Oximetry 100 MDM - OB/Uterine Contractions <Mary Sol PA-C - Last Filed: 01/16/20 20:53> Lab Data Attestation: I reviewed the patient's lab results. Result diagrams: 04/28/19 13:45 04/28/19 13:45 Labs: Lab Results 04/28/19 04/28/19 04/28/19 Range/Units 13:45 13:45 13:45 WBC 8.8 (4.5-11.0) X10^3/uL RBC 4.75 (4.0-5.2) X10^6/uL Hgb 13.5 (12.0-16.0) g/dL Hct 40.6 (36-46) % MCV 85.5 (80-100) fL MCH 28.3 (26-34) PG MCHC 33.2 (30-36) % RDW 14.0 (11.6-14.8) % Plt Count 308 (150-400) X10^3/uL Neut % (Auto) 68.8 (50-75) % Lymph % (Auto) 22.1 L (25-40) % Ashley % (Auto) 6.6 (3-14) % Eos % (Auto) 1.9 L (2-4) % Baso % (Auto) 0.6 (0-2) % Neut # (Auto) 6100 (3820-7076) /uL Lymph # (Auto) 2000 (3065-4598) /uL Ashley # (Auto) 600 (0-900) /uL Eos # (Auto) 200 (0-450) /uL Baso # (Auto) 0 (0-100) /uL Sodium 138 (137-145) mmol/L Potassium 4.0 (3.4-5.1) mmol/L Chloride 102 (98-107) mmol/L Carbon Dioxide 25 (22-32) mmol/L BUN 11 (7-17) mg/dL Creatinine 0.60 (0.52-1.04) mg/dL Estimated GFR > 60.0 (>60) mL/min BUN/Creatinine Ratio 18.3 (6-22) Glucose 91 (70-100) mg/dL Calcium 9.8 (8.4-10.2) mg/dL Total Bilirubin 0.4 (0.2-1.3) mg/dL AST 41 H (14-36) IU/L ALT 48 H (<35) IU/L Alkaline Phosphatase 91 (38-126) U/L Total Protein 8.0 (6.3-8.2) g/dL Albumin 4.6 (3.5-5.0) g/dL Globulin 3.4 (1.7-4.1) g/dL Albumin/Globulin Ratio 1.4 (1.0-2.8) HCG, Quant 8365.7 mIU/mL Blood Type O Positive Urine Dip Bedside Urine Glucose Negative Bedside Urine Bilirubin - Negative Bedside Urine Ketone - Negative Urine Specific Dresser 1.020 Bedside Urine Occult Blood ++ Bedside Urine pH 7.0 Bedside Urine Protein +/- 15 Bedside Urine Urobilinogen - Negative Bedside Urine Nitrite - Negative Bedside Urine Leukocytes - Negative Esterase Imaging Data US - OB: Radiologist's Impression: [address] [address] Ultrasound Report Signed Patient: Viraj Coyle EMR#: [id number] : 1990Acct:[id number] Age/Sex: 29 / FDate of Service: 04/28/19 Loc: ED Accession Number: [id number] Procedure: US OB <= 14 weeks fetus Ordering Provider: Maritza Sanchez MD PROCEDURE: US OB <= 14 WEEKS FETUS INDICATIONS: VAG BLEEDING 6 WEEKS PREG OUTSIDE/PRIOR DATING DATA: Last menstrual period (LMP): 03/17/19. LMP-based estimated date of delivery (EARLENE): 12/22/19. First dating scan (date and location): 04/28/19. Estimated date of delivery (EARLENE) from first dating scan: 12/24/19. TECHNIQUE: Real-time scanning was performed of the fetus and maternal pelvic organs, with image documentation. Endovaginal scanning was also performed to better visualize the fetus and maternal ovaries. COMPARISON: [facility], , US OB <= 14 WEEKS FETUS, 01/03/2018, 23:09. FINDINGS: Embryo: A single intrauterine gestational sac is identified it has a mean gestational sac diameter of 1.03 cm, which correlates with an estimated gestational age of 5 weeks 5 days (EARLENE 12/24/19). A small yolk sac is visualized. However, a pole is not definitely seen, at this time. A small implantation hemorrhage is incidentally noted surrounding the gestational sac. Maternal organs: Ovaries are not enlarged or adequately evaluated. Corpus luteum on the right may be present. 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 Limited images through the kidneys demonstrate no hydronephrosis. IMPRESSION: 1. Single intrauterine gestational sac has an estimated gestational age of approximately 5 weeks 5 days (sonographic EARLENE 12/24/19), which is concordant with the LMP dates. 2. A pole is not yet identified. Followup imaging in 1 week is recommended to evaluate for viability. 3. Small implantation hemorrhage. 4. 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 Dictated by: Long Rolon M.D. on 04/28/2019 at 13:58 Approved by: Long Rolon M.D. on 04/28/2019 at 14:02 <Maritza Sanchez MD - Last Filed: 05/02/19 12:19> Lab Data Labs: Lab Results 04/28/19 04/28/19 04/28/19 Range/Units 13:45 13:45 13:45 WBC 8.8 (4.5-11.0) X10^3/uL RBC 4.75 (4.0-5.2) X10^6/uL Hgb 13.5 (12.0-16.0) g/dL Hct 40.6 (36-46) % MCV 85.5 (80-100) fL MCH 28.3 (26-34) PG MCHC 33.2 (30-36) % RDW 14.0 (11.6-14.8) % Plt Count 308 (150-400) X10^3/uL Neut % (Auto) 68.8 (50-75) % Lymph % (Auto) 22.1 L (25-40) % Ashley % (Auto) 6.6 (3-14) % Eos % (Auto) 1.9 L (2-4) % Baso % (Auto) 0.6 (0-2) % Neut # (Auto) 6100 (1185-5642) /uL Lymph # (Auto) 2000 (1436-8636) /uL Ashley # (Auto) 600 (0-900) /uL Eos # (Auto) 200 (0-450) /uL Baso # (Auto) 0 (0-100) /uL Sodium 138 (137-145) mmol/L Potassium 4.0 (3.4-5.1) mmol/L Chloride 102 (98-107) mmol/L Carbon Dioxide 25 (22-32) mmol/L BUN 11 (7-17) mg/dL Creatinine 0.60 (0.52-1.04) mg/dL Estimated GFR > 60.0 (>60) mL/min BUN/Creatinine Ratio 18.3 (6-22) Glucose 91 (70-100) mg/dL Calcium 9.8 (8.4-10.2) mg/dL Total Bilirubin 0.4 (0.2-1.3) mg/dL AST 41 H (14-36) IU/L ALT 48 H (<35) IU/L Alkaline Phosphatase 91 (38-126) U/L Total Protein 8.0 (6.3-8.2) g/dL Albumin 4.6 (3.5-5.0) g/dL Globulin 3.4 (1.7-4.1) g/dL Albumin/Globulin Ratio 1.4 (1.0-2.8) HCG, Quant 8365.7 mIU/mL Blood Type O Positive Urine Dip Bedside Urine Glucose Negative Bedside Urine Bilirubin - Negative Bedside Urine Ketone - Negative Urine Specific Dresser 1.020 Bedside Urine Occult Blood ++ Bedside Urine pH 7.0 Bedside Urine Protein +/- 15 Bedside Urine Urobilinogen - Negative Bedside Urine Nitrite - Negative Bedside Urine Leukocytes - Negative Esterase Discharge Plan Departure Patient Disposition: Home Clinical Impression: Vaginal bleeding during , Threatened in first trimester Discharge Date/Time: 04/28/19 15:58 Instructions: DI for Vaginal Bleeding During Activity Restrictions/Additional Instructions: As we talked about, you should return to the ED if you have acutely worsening symptoms. Otherwise, I spoke with Dr. Sanabria who is on-call for Dr. Card today and he agrees that you need close follow-up. On your blood tests and ultrasound today, there is no clear miscarriage and findings are consistent with a 5 week and 5 day , however of course this is concerning given your history of miscarriage. He asked that you call 1st thing in the morning and let them know your in the emergency room and he said that you need to see Dr. Card for follow- up tomorrow and also have repeat blood test. Please remain off of work until you follow-up and discuss with Dr. Card Referrals: [employer] [Provider Group] Frida Dennis PA-C [Primary Care Provider] - Stand Alone Forms: Work Release Note
--- NOTE | 2019-04-28 15:31 | PC.NURSE ---
assisted NATALY Sol at bedside with needle punch machine operator helper exam, no bright red blood at time of exam, scant amount of brown mucus visualized
[2019-04-28 15:37] VITALS: BP 144/75; PULSE 91; RESP 16; O2SAT 100
== END 2019-04-28 15:58 | disposition home or self-care (01) ==
PROVIDERS: Emergency Medicine; Emergency Provider Internal Medicine; PCP Physician Assistant Medical
DX: O20.0 Threatened abortion (principal); Z3A.01 Less than 8 weeks gestation of pregnancy
CPT/HCPCS: 36415; 76801; 80053; 81003; 84702; 85025; 86900; 86901; 99283; 99284

== ENCOUNTER 2019-05-02 21:24 | Emergency (ER) | payer OTHER, SELFPAY ==
--- NOTE | 2019-05-02 21:27 | ED.PREGNANCY ---
HPI - General Chief complaint: OB/Uterine Contractions Stated complaint: 6 WKS BLEEDING AGAIN Time Seen by Provider: 05/02/19 21:27 Source: patient Mode of arrival: Ambulatory Limitations: no limitations History of Present Illness HPI Narrative: 21-year-old female nonsmoker with fibromyalgia presents with a chief complaint of cramping and vaginal bleeding. She is a at 6 weeks and all of her miscarriages is have happened prior to 13 weeks. She has been followed closely in was most recently seen few days ago with an ultrasound showing an IUP and a small implantation bleed. She had an hCG on the which was about 8000. She has had no fever chills. She is not dizzy nor weak or lightheaded. She does have some episodic lower cramping more on the left than the right. She has historically been [facility] by [facility]. She has blood through 1 pad today. MD Complaint: vaginal bleeding Onset (ago): day(s) Pain Consistency: intermittent Location: pelvis Severity: moderate Quality: Cramping Relieving factors: none Exacerbating factors: none Associated symptoms: vaginal bleeding Vaginal bleeding: heavy Patient : Yes OB History - Current : other OB History - Previous Pregnancies: miscarriage care: followed by OB Related Data Allergies Allergy/AdvReac Type Severity Reaction Status Date / Time ondansetron Allergy Unknown ITCHY Verified 04/28/19 12:49 [From ZOFRAN ( HYDROCHLORIDE)] Review of Systems Constitutional Constitutional: Denies chills, Denies fatigue, Denies fever(s), Denies frequent falls, Denies lethargy and Denies weakness Eyes Eyes: Denies change in vision, Denies eye discharge, Denies irritation and Denies loss of vision ENT Ears, Nose, Mouth, and Throat: Denies change in voice, Denies dizziness, Denies neck pain, Denies sore throat and Denies throat swelling Cardiovascular Cardiovascular: Denies chest pain, Denies irregular heart rhythm, Denies lightheadedness, Denies palpitations, Denies dyspnea, Denies dyspnea on exertion and Denies orthopnea Respiratory Respiratory: Denies cough, Denies dyspnea, Denies dyspnea on exertion and Denies wheezing Gastrointestinal Gastrointestinal: Denies abdominal pain, Denies change in bowel habits, Denies diarrhea, Denies nausea and Denies vomiting Genitourinary Genitourinary: Reports abnormal vaginal bleeding, Denies hematuria, Reports pelvic pain, Denies flank pain, Denies urinary incontinence and Denies urinary urgency Musculoskeletal Musculoskeletal: Denies back pain, Denies muscle weakness, Denies neck pain, Denies numbness and Denies tingling Integumentary/Breasts Skin/Breast: Denies pruritus, Denies erythema, Denies rash and Denies wounds Neurologic Neurologic: Denies behavioral changes, Denies confusion, Denies dizziness, Denies frequent falls, Denies loss of vision, Denies numbness, Denies tingling and Denies weakness Psychiatric Psychiatric: Denies anxiety, Denies behavioral changes, Denies confusion, Denies depression, Denies homicidal ideation and Denies suicidal ideation Endocrine Endocrine: Denies fatigue, Denies flushing and Denies palpitations Hematologic/Lymphatic Hematologic/Lymphatic: Denies easy bruising Allergic/Immunologic Allergic/Immunologic: Denies urticaria, Denies throat swelling and Denies wheezing PMFSH - Past Medical History Medical history: Reports other (Fibromyalgia) Surgical history: Reports other (D&C) Patient : Yes Family History Family history: Reports other (No known family history of multiple miscarriages) Exam Narrative Exam Narrative: GENERAL: [29] year old patient appears stated age. Obese, resting comfortably, mildly anxious HEAD: Atraumatic. Normocephalic. EYES: Pupils equal round and reactive. Extraocular motions intact. No scleral icterus. No injection or drainage. ENT: Nose without bleeding, purulent drainage. Throat without erythema, tonsillar hypertrophy or exudate. Airway patent. NECK: Trachea midline. Non tender CARDIOVASCULAR: Regular rate and rhythm without murmurs, gallops, or rubs. RESPIRATORY: Clear to auscultation. Breath sounds equal bilaterally. No wheezes, rales, or rhonchi. GASTROINTESTINAL: Abdomen soft, non-tender, nondistended. EXTREMITIES: No edema or joint tenderness. BACK: Nontender without deformity or crepitance. No flank tenderness. NEURO: AOx3. SKIN: No rash or erythema of visible areas Initial Vital Signs Initial Vital Signs: Vital Signs Temperature 98.5 F 05/02/19 21:37 Pulse Rate 114 H 05/02/19 21:37 Respiratory Rate 15 05/02/19 21:37 Blood Pressure 159/103 H 05/02/19 21:37 Pulse Oximetry 99 05/02/19 21:37 Course Orders Ordered: ED Orders 05/02/19 21:33 US OB <= 14 weeks fetus Stat 05/02/19 21:45 HCG Quantitative /Beta subunit Stat Hemoglobin and Hematocrit Stat Vital Signs Vital signs: Vital Signs - 8 hr 05/02/19 21:37 05/02/19 22:00 Temperature 98.5 F Pulse Rate 114 H 100 H Respiratory Rate 15 Blood Pressure 159/103 H Pulse Oximetry 99 MDM - OB/Uterine Contractions Lab Data Result diagrams: 05/02/19 21:45 Labs: Lab Results 05/02/19 05/02/19 Range/Units 21:45 21:45 Hgb 12.7 (12.0-16.0) g/dL Hct 38.1 (36-46) % HCG, Quant 52429 mIU/mL Discharge Plan Departure Patient Disposition: Home Clinical Impression: Abnormal vaginal bleeding, Threatened in first trimester Discharge Date/Time: 05/02/19 23:32 Instructions: DI for Vaginal Bleeding During Activity Restrictions/Additional Instructions: *You have been diagnosed with [vaginal bleeding in 1st trimester] *What to do: *Follow up with your primary care provider in 2-3 days, call for an appointment. Let them know you were seen in the Emergency Department and that we ask that you be seen in follow up *Return to ER if you should have any new, worsening or concerning symptoms, such as [increased pain, bleeding through a pad per hour, fever over 101 or other bothersome symptoms] Referrals: Frida Dennis PA-C [Primary Care Provider] - Stand Alone Forms: Work Release Note
--- NOTE | 2019-05-02 21:33 | DI.US.S_ITS ---
PROCEDURE: US OB <= 14 WEEKS FETUS INDICATIONS: BLEEDING, CRAMPING, SENT BY OB OUTSIDE/PRIOR DATING DATA: Last menstrual period (LMP): 03/17/19. LMP-based estimated date of delivery (EARLENE): 12/22/19. First dating scan (date and location): 05/02/19. Estimated date of delivery (EARLENE) from first dating scan: 12/26/19. TECHNIQUE: Real-time scanning was performed of the fetus and maternal pelvic organs, with image documentation. Endovaginal scanning was also performed to better visualize the fetus and maternal ovaries. COMPARISON: [facility], , OB <= 14 WEEKS FETUS, 04/28/2019, 13:05. FINDINGS: Embryo: Single live intrauterine with crown-rump length measuring 4 mm corresponding to 6 weeks zero days. heart rate is identified at 105 beats per minute. Maternal organs: Ovaries demonstrate a right corpus luteal cyst. Left ovary is not well-seen.. Limited images through the kidneys demonstrate no hydronephrosis. IMPRESSION: 1. Single live intrauterine with ultrasound gestational age of 6 weeks zero days corresponding to ultrasound EARLENE of 12/26/19. Dictated by: Johanna Olivas M.D. on 05/03/2019 at 9:49 Approved by: Johanna Olivas M.D. on 05/03/2019 at 9:51
[2019-05-02 21:37] VITALS: BP 159/103; PULSE 114; RESP 15; TEMP 36.9; O2SAT 99; BMI 40.1
[2019-05-02 21:50] LABS: Hematocrit 38.1 % (36-46); Hemoglobin 12.7 g/dL (12.0-16.0)
[2019-05-02 22:00] VITALS: PULSE 100
[2019-05-02 22:19] LABS: HCG Quantitative /Beta subunit 15738 mIU/mL
[2019-05-02 23:32] VITALS: BP 155/81; PULSE 96; RESP 18; O2SAT 100
== END 2019-05-02 23:32 | disposition home or self-care (01) ==
PROVIDERS: Emergency Provider Emergency Medicine; PCP Physician Assistant Medical
DX: O20.0 Threatened abortion (principal); Z3A.01 Less than 8 weeks gestation of pregnancy
CPT/HCPCS: 36415; 76801; 76817; 84702; 85014; 85018; 99283; 99284

== ENCOUNTER 2019-05-10 21:57 | Emergency (ER) | payer OTHER, SELFPAY ==
[2019-05-10 21:59] VITALS: BP 142/91; PULSE 99; RESP 18; TEMP 37.1; O2SAT 100
[2019-05-10 22:49] LABS: Add Manual Diff / Slide Review NO; Basophils Absolute Auto 100 /uL (0-100); Basophils Percent Auto 0.7 % (0-2); Eosinophils Absolute Auto 100 /uL (0-450); Eosinophils Percent Auto 0.5 % (2-4); Hematocrit 36.6 % (36-46); Hemoglobin 12.2 g/dL (12.0-16.0); Lymphocytes Absolute Auto 1200 /uL (1100-4500); Lymphocytes Percent Auto 6.6 % (25-40); Mean Corpuscular HGB Conc 33.2 % (30-36); Mean Corpuscular Hemoglobin 28.4 PG (26-34); Mean Corpuscular Volume 85.6 fL (80-100); Monocytes Absolute Auto 700 /uL (0-900); Neutrophils Absolute Auto 15900 /uL (1500-7000); Neutrophils Percent Auto 88.2 % (50-75); Platelet Count 339 X10^3/uL (150-400); Red Blood Cell Count 4.28 X10^6/uL (4.0-5.2); Red Cell Distribution Width 14.1 % (11.6-14.8)
[2019-05-10 23:00] LABS: Alanine Aminotransferase 43 IU/L (<35); Albumin 4.7 g/dL (3.5-5.0); Albumin Globulin Ratio 1.3 (1.0-2.8); Alkaline Phosphatase 101 U/L (38-126); Aspartate Aminotransferase 43 IU/L (14-36); Bilirubin Total 0.3 mg/dL (0.2-1.3); Blood Urea Nitrogen 14 mg/dL (7-17); Calcium 9.7 mg/dL (8.4-10.2); Carbon Dioxide 26 mmol/L (22-32); Chloride 100 mmol/L (98-107); Estimated Glomerular Filt Rate > 60.0 mL/min (>60); Globulin 3.6 g/dL (1.7-4.1); Glucose 117 mg/dL (70-100); HEMOLYSIS < 15 (0-50); Potassium 3.8 mmol/L (3.4-5.1); Sodium 137 mmol/L (137-145); Total Protein 8.3 g/dL (6.3-8.2)
--- NOTE | 2019-05-10 23:38 | ED.GENADULT ---
HPI - General Adult General Chief complaint: Vaginal Bleeding Stated complaint: abd pains, chills 7 weeks Time Seen by Provider: 05/10/19 22:27 Source: patient Mode of arrival: Ambulatory Limitations: no limitations History of Present Illness HPI narrative: 29-year-old at 8 weeks EGA here for evaluation of vaginal bleeding. She has a known IUP. Is Rh positive. Had ultrasound approximately 5 days ago which showed according to her report a intrauterine with positive cardiac activity however did have a subchorionic hemorrhage. States she started having cramping and vaginal bleeding. Pass large clots. Related Data Allergies Allergy/AdvReac Type Severity Reaction Status Date / Time ondansetron Allergy Unknown ITCHY Verified 05/10/19 22:03 [From ZOFRAN ( HYDROCHLORIDE)] Review of Systems Constitutional Constitutional: Denies fever(s) and Denies headache(s) ENT Ears, Nose, Mouth, and Throat: Denies headache(s) Gastrointestinal Gastrointestinal: Reports abdominal pain Genitourinary Genitourinary: Reports vaginal discharge Integumentary/Breasts Skin/Breast: Denies rash Neurologic Neurologic: Denies headache(s) Hematologic/Lymphatic Hematologic/Lymphatic: Denies easy bleeding and Denies easy bruising Patient History Medical History Abnormal vaginal bleeding (Inactive) Threatened in first trimester (Inactive) Vaginal bleeding during (Inactive) Social History Smoking Status: Former smoker Smoking Status: Former smoker alcohol intake frequency: 0-2 drinks per day Substance Use Type: does not use Exam Initial Vital Signs Initial Vital Signs: Vital Signs Temperature 98.8 F 05/10/19 21:59 Pulse Rate 99 H 05/10/19 21:59 Respiratory Rate 18 05/10/19 21:59 Blood Pressure 142/91 H 05/10/19 21:59 Pulse Oximetry 100 05/10/19 21:59 Const General: cooperative and comfortable Limitations: mental status not altered HENMT Head: normal to inspection and normocephalic Resp Effort & Inspection: normal respiratory effort Cardio Rate: regular rate GI Inspection: non-distended Skin Lesions: no lesions Rashes: no rashes Neuro General: alert and awake Cognition: normal cognition Extrem General: capillary refill normal Psych Appearance: grossly normal and well kempt Course Orders Ordered: ED Orders 05/10/19 22:40 Complete Blood Count AUTO DIFF Stat Comprehensive Metabolic Panel Stat HCG Quantitative /Beta subunit Stat 05/10/19 23:56 US OB <= 14 weeks fetus Stat 05/11/19 00:39 Hemoglobin and Hematocrit Stat Vital Signs Vital signs: Vital Signs - 8 hr 05/10/19 21:59 05/11/19 01:51 Temperature 98.8 F Pulse Rate 99 H 97 H Respiratory Rate 18 17 Blood Pressure 142/91 H Blood Pressure [Right Arm] 133/78 Pulse Oximetry 100 98 Medical Decision Making Lab Data Lab results reviewed: Yes I reviewed the patient's lab results. Result diagrams: 05/11/19 00:39 05/10/19 22:40 Labs: Lab Results 05/10/19 05/10/19 05/11/19 Range/Units 22:40 22:40 00:39 WBC 18.0 H (4.5-11.0) X10^3/uL RBC 4.28 (4.0-5.2) X10^6/uL Hgb 12.2 11.8 L (12.0-16.0) g/dL Hct 36.6 35.6 L (36-46) % MCV 85.6 (80-100) fL MCH 28.4 (26-34) PG MCHC 33.2 (30-36) % RDW 14.1 (11.6-14.8) % Plt Count 339 (150-400) X10^3/uL Neut % (Auto) 88.2 H (50-75) % Lymph % (Auto) 6.6 L (25-40) % [place] % (Auto) 4.0 (3-14) % Eos % (Auto) 0.5 L (2-4) % Baso % (Auto) 0.7 (0-2) % Neut # (Auto) 32414 H (0096-9696) /uL Lymph # (Auto) 1200 (2447-1783) /uL [place] # (Auto) 700 (0-900) /uL Eos # (Auto) 100 (0-450) /uL Baso # (Auto) 100 (0-100) /uL Sodium 137 (137-145) mmol/L Potassium 3.8 (3.4-5.1) mmol/L Chloride 100 (98-107) mmol/L Carbon Dioxide 26 (22-32) mmol/L BUN 14 (7-17) mg/dL Creatinine 0.70 (0.52-1.04) mg/dL Estimated GFR > 60.0 (>60) mL/min BUN/Creatinine Ratio 20.0 (6-22) Glucose 117 H (70-100) mg/dL Calcium 9.7 (8.4-10.2) mg/dL Total Bilirubin 0.3 (0.2-1.3) mg/dL AST 43 H (14-36) IU/L ALT 43 H (<35) IU/L Alkaline Phosphatase 101 (38-126) U/L Total Protein 8.3 H (6.3-8.2) g/dL Albumin 4.7 (3.5-5.0) g/dL Globulin 3.6 (1.7-4.1) g/dL Albumin/Globulin Ratio 1.3 (1.0-2.8) HCG, Quant 69531 mIU/mL Imaging Data US - OB: Radiologist's Impression: Findings consistent with intrauterine demise with adjacent subchorionic hemorrhage MDM Narrative Medical decision making narrative: Rh positive, not hypotensive, not tachycardic, hCG quant 22,000. She states that is up from 15,000 just a couple days ago. Ultrasound concerning for intrauterine demise. She did have large clots here in the ER. Pathology was ordered for evaluation of products of conception. Patient was given a copy of her ultrasound on a CD. She has an appointment later this morning with the nurse at her OB Clinic. She was informed that bleeding could continue. We did discuss return precautions and follow-up instructions. She expressed understanding and agreement plan. Discharge Plan Departure Patient Disposition: Home Clinical Impression: Incomplete miscarriage Instructions: Dealing With Miscarriage, DI for Miscarriage Activity Restrictions/Additional Instructions: Recommend that you keep your scheduled appointment for later this morning. Expect continued bleeding. Return to the emergency department for any new or worsening symptoms like we discussed Referrals: Frida Dennis PA-C [Primary Care Provider] -
[2019-05-10 23:41] LABS: HCG Quantitative /Beta subunit 22004 mIU/mL
--- NOTE | 2019-05-10 23:56 | DI.US.S_ITS ---
PROCEDURE: US OB <= 14 WEEKS FETUS INDICATIONS: SEVERE BLEEDING OUTSIDE/PRIOR DATING DATA: Last menstrual period (LMP): 03/17/19. LMP-based estimated date of delivery (EARLENE): 12/22/19. First dating scan (date and location): 05/02/19. Estimated date of delivery (EARLENE) from first dating scan: 12/26/19. TECHNIQUE: Real-time scanning was performed of the fetus and maternal pelvic organs, with image documentation. Endovaginal scanning was also performed to better visualize the fetus and maternal ovaries. COMPARISON: [facility], OB <= 14 WEEKS FETUS, 05/02/2019, 22:08. [facility], OB <= 14 WEEKS FETUS, 04/28/2019, 13:05. FINDINGS: Embryo: Paa-Ko-rump length 7 mm, no cardiac activity observed. Expected gestational age from earlier first trimester OB ultrasound is 7 weeks 2 days and the current estimated gestational age and study is 6 weeks 4 days, by crown-rump length. Measurement variability in dating: +/- 4 weeks by LMP, +/- 7 days by mean sac diameter (use before 6 weeks gestation if crown-rump length not able to be measured), +/- 5 days by crown-rump length (up to 8 weeks 6 days gestation), +/- 7 days by crown-rump length (up to 13 weeks 6 days gestation). Maternal organs: Ovaries are normal considering gestational status. Limited images through the kidneys demonstrate no hydronephrosis. IMPRESSION: demise, irregular gestational sac, the sac now is located within the lower uterine segment indicating spontaneous in progress in this clinical circumstance. Dictated by: Killian Tabares M.D. on 05/11/2019 at 8:40 Approved by: Killian Tabares M.D. on 05/11/2019 at 8:43
[2019-05-11 00:50] LABS: Hematocrit 35.6 % (36-46); Hemoglobin 11.8 g/dL (12.0-16.0)
--- NOTE | 2019-05-11 01:31 | PATH_ITS ---
[facility] Accession Number: [id number] . 01 Material submitted: . product of conception - POC . 02 Diagnosis: Products of Conception: Scant products of conception identified. MRV 05/16/2019 1122 Local . 02 Electronically signed: . Maritza Kelly MD, Pathologist NPI- [id number] . 01 Gross description: . Received unfixed are multiple pieces of apparently coagulated blood (36 grams, 9.5 x 7.5 x 2.5 cm in aggregate). No obvious tissue is identified. Credit And Collection Manager submitted in cassettes [id number]. ([id number]) /MRV 05/15/2019 2204 Local . 02 Pathologist provided ICD-10: O73.1 . 02 CPT . 079971 Specimen Comment: A duplicate report has been generated due to demographic updates. Performed at: 01 [facility] [address] [place] [address], [place], [place] [id number] MD Tyrell Durham MD Phone: [phone] Performed at: [address] [facility] [address] [place], [place] [id number] MD Mara Coombs MD Phone: [phone]
[2019-05-11 01:51] VITALS: BP 133/78; PULSE 97; RESP 17; O2SAT 98
== END 2019-05-11 02:24 | disposition home or self-care (01) ==
PROVIDERS: Emergency Provider Emergency Medicine; PCP Physician Assistant Medical
DX: O03.4 Incomplete spontaneous abortion without complication (principal)
CPT/HCPCS: 36415; 76801; 76817; 80053; 84702; 85014; 85018; 85025; 99284

== ENCOUNTER → 2020-06-12 13:03 | Outpatient (ROUT) | payer OTHER, SELFPAY ==
[2020-06-14 03:18] LABS: Chlamydia trachomatis NAA Negative (Negative); Neisseria gonorrhoeae NAA Negative (Negative)
== END ==
PROVIDERS: Visit Provider Obstetrics & Gynecology
DX: Z34.81 Encounter for supervision of other normal pregnancy, first trimester (principal)
CPT/HCPCS: 87491; 87591

== ENCOUNTER → 2020-06-28 11:24 | Outpatient (CLI) | payer OTHER, SELFPAY ==
[2020-06-28 11:54] LABS: Add Manual Diff / Slide Review NO; Basophils Absolute Auto 100 /uL (0-100); Basophils Percent Auto 0.5 % (0-2); Eosinophils Absolute Auto 100 /uL (0-450); Eosinophils Percent Auto 1.1 % (2-4); Hematocrit 40.8 % (36-46); Hemoglobin 13.5 g/dL (12.0-16.0); Lymphocytes Absolute Auto 1900 /uL (1100-4500); Lymphocytes Percent Auto 16.7 % (25-40); Mean Corpuscular Hemoglobin 28.2 PG (26-34); Mean Corpuscular Volume 85.5 fL (80-100); Monocytes Absolute Auto 700 /uL (0-900); Monocytes Percent Auto 6.6 % (3-14); Neutrophils Absolute Auto 8500 /uL (1500-7000); Neutrophils Percent Auto 75.1 % (50-75); Platelet Count 280 X10^3/uL (150-400); Red Blood Cell Count 4.77 X10^6/uL (4.0-5.2); Red Cell Distribution Width 13.4 % (11.6-14.8); White Blood Cell Count 11.3 X10^3/uL (4.5-11.0)
[2020-06-28 12:21] LABS: Appearance Urine UA CLEAR; Bilirubin Urine UA NEGATIVE (NEGATIVE); Color Urine UA YELLOW; Glucose Urine UA NEGATIVE (Negative); Ketones Urine UA NEGATIVE (NEGATIVE); Leukocyte Esterase Urine UA NEGATIVE (NEGATIVE); Nitrite Urine UA NEGATIVE (Negative); Occult Blood Urine UA NEGATIVE (Negative); Protein Urine UA TRACE (Negative); Specific Gravity Urine UA 1.025 (1.000-1.035); Urobilinogen Urine UA 0.2 E.U./dL (0.2)
[2020-06-28 12:33] LABS: Alanine Aminotransferase 68 IU/L (<35); Albumin 4.2 g/dL (3.5-5.0); Albumin Globulin Ratio 1.4 (1.0-2.8); Alkaline Phosphatase 95 U/L (38-126); Aspartate Aminotransferase 46 IU/L (14-36); BUN Creatinine Ratio 12.3 (6-22); Bilirubin Total 0.3 mg/dL (0.2-1.3); Blood Urea Nitrogen 7 mg/dL (7-17); Calcium 9.9 mg/dL (8.4-10.2); Carbon Dioxide 20 mmol/L (22-32); Chloride 106 mmol/L (98-107); Creatinine Urine Random 192.3 mg/dL; Estimated Glomerular Filt Rate > 60.0 mL/min (>60); Glucose 99 mg/dL (70-100); HEMOLYSIS < 15 (0-50); Lactate Dehydrogenase 458 U/L (313-618); Potassium 4.2 mmol/L (3.4-5.1); Protein (Total) Urine Random 8 mg/dL (0-12); Protein Creatinine Ratio Urine 0.04 GRAM/24H; Sodium 136 mmol/L (137-145); Total Protein 7.2 g/dL (6.3-8.2); Uric Acid 5.5 mg/dL (2.5-6.2)
[2020-06-28 13:06] LABS: Hepatitis B Surface Antigen NEGATIVE s/c (NEGATIVE); Rubella Antibody IgG 30.8 IU/mL (>15)
[2020-06-28 13:29] LABS: HIV 1 & 2 Ab/Ag 4th Gen Combo NEGATIVE (NEGATIVE); Hep C Virus Ab w/Reflex Quant NEGATIVE s/c (NEGATIVE)
[2020-06-29 05:37] LABS: RPR Screen Non Reactive (Non Reactive)
[2020-06-29 07:10] LABS: Varicella IgG Antibody 377 index (Immune >165)
== END ==
PROVIDERS: Referring Provider Obstetrics & Gynecology; Visit Provider Obstetrics & Gynecology
DX: Z34.81 Encounter for supervision of other normal pregnancy, first trimester (principal)
CPT/HCPCS: 36415; 80053; 80055; 81003; 82570; 83615; 84156; 84550; 86787; 86803; 86850; 86900; 86901; 87086; 87389

== ENCOUNTER → 2020-07-13 15:45 | Outpatient (CLI) | payer OTHER, SELFPAY ==
[2020-07-17 13:00] LABS: AFP, Serum 29.2 ng/mL (.); Calc Gestational Age EDD (.); Inhibin A, Dimeric 117.06 pg/mL (.); Inhibin A, MoM 1.06 (.); Maternal Ethnicity Caucasian (.); Maternal Weight 288 lbs (.); Number of Fetuses No (.); OSBR Risk 1 IN 6704 (.); Results Report (.); Test Results *Screen Negative* (.); hCG, Serum 25584 mIU/mL (.)
== END ==
PROVIDERS: Referring Provider Obstetrics & Gynecology; Visit Provider Obstetrics & Gynecology
DX: O09.92 Supervision of high risk pregnancy, unspecified, second trimester (principal); Z36.0 Encounter for antenatal screening for chromosomal anomalies; Z3A.16 16 weeks gestation of pregnancy
CPT/HCPCS: 36415; 82105; 82677; 84702; 86336

== ENCOUNTER → 2020-08-06 15:35 | Outpatient (CLI) | payer OTHER, SELFPAY ==
--- NOTE | 2020-08-06 15:37 | DI.US.S_ITS ---
PROCEDURE: US OB >= 14 WEEKS FETUS INDICATIONS: 20 week anatomy scan OUTSIDE/PRIOR DATING DATA: Last menstrual period (LMP): March 21, 2020. LMP-based estimated date of delivery (EARLENE): December 26, 2020. First dating scan (date and location): June 12, 2020. Estimated date of delivery (EARLENE) from first dating scan: December 25, 2020. TECHNIQUE: Real-time scanning was performed of the fetus, with image documentation and biometric measurements. Endovaginal scanning: Perform COMPARISON: None. FINDINGS: General: A single living intrauterine gestation is present. Presentation: Cephalic Placenta: Placental position is maternal left lateral extending anterior-posterior, without previa. Amniotic fluid index: 12.1 cm, normal range is 5-24 cm. heart rate: 141 beats per minute. Maternal cervical canal: Closed and 3.8 cm long. Normal lower limit is 2.5 cm. biometrics: Biparietal diameter: 19 weeks 6 days Head circumference: 19 weeks 4 days Abdominal circumference: 20 weeks 0 days Femur length: 19 weeks 6 days Estimated gestational age from initial scan: 19 weeks 6 days. Composite gestational age from present scan: 19 weeks 6 days. Estimated weight and percentile: 320 grams; 48th percentile Measurement variability for biometric dating: +/- 7 days from 14 weeks to 15 weeks 6 days gestation, +/- 10 days from 16 weeks to 21 weeks 6 days gestation, +/- 2 weeks from 22 weeks to 27 weeks 6 days gestation, +/- 3 weeks for 28 weeks gestation or later. weight reference: 4500 g or EFW >90/95% is considered macrosomia or large for gestational age. EFW <10% is small for gestational age. EFW 5% or less is considered intra-uterine growth restriction. Anatomic survey: Neuro: Ventricles are non-dilated at less than 10 mm. Cisterna magna is normal at 3-11 mm. Cerebellum is normal in size and morphology. Nuchal skin fold: Normal at less than 6 mm between 14-21 weeks gestational age. Face: Nose and lips, facial profile are normal. Spine: No evidence for spina bifida. Heart: 4-chambered heart is present, with normal ventricular outflow tracts. Diaphragm: Diaphragm is intact. Stomach: Left-sided stomach is present. Kidneys: No hydronephrosis. Normal is less than 5 mm in 2nd trimester, less than 7 mm in 3rd trimester. Cord: 3-vessel cord has orthotopic insertion. Bladder: Normal in size. Extremities: All 4 extremities identified. IMPRESSION: 1. Single living intrauterine with appropriate interval growth. 2. Normal anatomic survey. Dictated by: Sheri Alves MD, PhD on 08/06/2020 at 17:33 Approved by: Sheri Alves MD, PhD on 08/06/2020 at 17:36
== END ==
PROVIDERS: Referring Provider Obstetrics & Gynecology; Visit Provider Obstetrics & Gynecology
DX: Z34.83 Encounter for supervision of other normal pregnancy, third trimester (principal); Z3A.19 19 weeks gestation of pregnancy
CPT/HCPCS: 76811

== ENCOUNTER → 2020-09-27 12:05 | Outpatient (CLI) | payer OTHER, SELFPAY ==
[2020-09-27 13:19] LABS: Hematocrit 35.1 % (36-46); Hemoglobin 11.5 g/dL (12.0-16.0)
[2020-09-27 13:39] LABS: GTT (PREG) 1 Hour PP 50gm Dose 173 mg/dL (76-139)
== END ==
PROVIDERS: Referring Provider Obstetrics & Gynecology; Visit Provider Obstetrics & Gynecology
DX: Z34.82 Encounter for supervision of other normal pregnancy, second trimester (principal); Z3A.26 26 weeks gestation of pregnancy
CPT/HCPCS: 36415; 82950; 85014; 85018

== ENCOUNTER 2020-09-30 14:40 | Outpatient (CLI) | payer OTHER, SELFPAY | END 2020-09-30 15:30 | disposition home or self-care (01) | LOC: LABOR 14:41 → OB 10-01 08:05 | PROVIDERS: Referring Provider Obstetrics & Gynecology; Visit Provider Obstetrics & Gynecology | DX: O26.892 Other specified pregnancy related conditions, second trimester (principal); R10.10 Upper abdominal pain, unspecified; O10.912 Unspecified pre-existing hypertension complicating pregnancy, second trimester; Z3A.27 27 weeks gestation of pregnancy | CPT/HCPCS: 59025; G0378; G0379 ==

== ENCOUNTER 2020-09-30 15:24 | Emergency (ER) | payer OTHER, SELFPAY ==
[2020-09-30 15:32] VITALS: BP 179/102; PULSE 94; RESP 19; TEMP 35.9; O2SAT 98; BMI 41.9
--- NOTE | 2020-09-30 16:51 | DI.US.S_ITS ---
PROCEDURE: US ABDOMEN COMPLETE INDICATIONS: PAIN TECHNIQUE: Real-time scanning was performed of the abdominal and retroperitoneal organs, with image documentation. COMPARISON: None. FINDINGS: Liver: Liver is normal in size and homogeneous in echotexture. Gallbladder: Unremarkable. No stones, gallbladder wall thickening, or pain on examination. Biliary ducts: Intrahepatic bile ducts are non-dilated. Extrahepatic bile duct caliber measures 3.7 mm. Normal is 6-7 mm or less in diameter, or 10 mm or less post-cholecystectomy. Pancreas: Visualized portions of the pancreas are sonographically normal. Spleen: Spleen is normal in size and homogeneous in echotexture. Kidneys: Kidneys are normal in size and echotexture. Right kidney measures 12.4 cm long; left kidney measures 13.3 cm long. No hydronephrosis or nephrolithiasis. No solid masses. Aorta: Visualized aorta is normal in caliber at less than 3 cm. Iliacs: Not visualized secondary to overlying bowel gas. IVC: Intrahepatic inferior vena cava is patent. Miscellaneous: No free abdominal fluid. IMPRESSION: 1. Unremarkable abdominal ultrasound. Dictated by: Be Acosta M.D. on 09/30/2020 at 16:54 Approved by: Be Acosta M.D. on 09/30/2020 at 16:55
[2020-09-30 17:07] LABS: Add Manual Diff / Slide Review NO; Basophils Absolute Auto 100 /uL (0-100); Basophils Percent Auto 0.6 % (0-2); Eosinophils Absolute Auto 500 /uL (0-450); Eosinophils Percent Auto 3.6 % (2-4); Hemoglobin 12.5 g/dL (12.0-16.0); Lymphocytes Absolute Auto 2200 /uL (1100-4500); Lymphocytes Percent Auto 16.6 % (25-40); Mean Corpuscular HGB Conc 33.8 % (30-36); Mean Corpuscular Hemoglobin 28.6 PG (26-34); Mean Corpuscular Volume 84.5 fL (80-100); Monocytes Absolute Auto 900 /uL (0-900); Monocytes Percent Auto 6.9 % (3-14); Neutrophils Absolute Auto 9400 /uL (1500-7000); Neutrophils Percent Auto 72.3 % (50-75); Platelet Count 322 X10^3/uL (150-400); Red Blood Cell Count 4.38 X10^6/uL (4.0-5.2); Red Cell Distribution Width 14.7 % (11.6-14.8)
[2020-09-30 17:24] LABS: Alanine Aminotransferase 81 IU/L (<35); Albumin 4.3 g/dL (3.5-5.0); Albumin Globulin Ratio 1.2 (1.0-2.8); Alkaline Phosphatase 116 U/L (38-126); Aspartate Aminotransferase 62 IU/L (14-36); BUN Creatinine Ratio 15.5 (6-22); Bilirubin Total 0.2 mg/dL (0.2-1.3); Blood Urea Nitrogen 9 mg/dL (7-17); Calcium 10.6 mg/dL (8.4-10.2); Carbon Dioxide 24 mmol/L (22-32); Chloride 103 mmol/L (98-107); Estimated Glomerular Filt Rate > 60.0 mL/min (>60); Globulin 3.7 g/dL (1.7-4.1); Glucose 92 mg/dL (70-100); HEMOLYSIS < 15 (0-50); Lipase 79 U/L (23-300); Potassium 3.9 mmol/L (3.4-5.1); Sodium 135 mmol/L (137-145)
[2020-09-30 18:02] VITALS: BP 133/69; PULSE 87; RESP 16; O2SAT 98
[2020-09-30] MEDS: SODIUM CHLORIDE 0.9% 1,000 ML 1000 ML IV (18:22)
--- NOTE | 2020-09-30 18:33 | ED_ITS ---
HPI - Abdominal Pain General Chief Complaint: Abdominal Pain Stated Complaint: Adb Pain/Nausea, 27 Wks Time Seen by Provider: 09/30/20 16:43 Source: patient Mode of arrival: Family Vehicle Limitations: no limitations History of Present Illness HPI narrative: Patient is a 30-year-old female , 27 weeks presenting with both lower abdominal pain and upper abdominal pain which started this afternoon. She feels little nauseous but is unfortunately allergic to Zofran. She denies any fever or chills. She was at [facility] were she had an NST and then was sent to the ED for further evaluation. She is feeling slightly better. MD complaint: abdominal pain Pain Consistency: constant Quality: aching Relieving factors: nothing Related Data Home Medications Medication Instructions Recorded Confirmed prenat.vits,lisseth,pda-ggwg-hqvvv 1 tab PO DAILY 06/07/20 09/25/20 Previous Rx's Medication Instructions Recorded metoclopramide HCl 10 mg tablet 10 mg PO Q6H PRN #20 tab 06/28/20 labetalol 100 mg tablet 100 mg PO BID #60 tab 09/14/20 Allergies Allergy/AdvReac Type Severity Reaction Status Date / Time house dust Allergy Intermediate Verified 09/30/20 15:35 ondansetron Allergy Intermediate ITCHY; Verified 09/30/20 15:35 [From ZOFRAN ( does not HYDROCHLORIDE)] work - makes nausea worse. adhesive tape Allergy Mild Red, itchy Verified 09/30/20 15:35 skin. animal dander Allergy Mild Verified 09/30/20 15:35 grass pollen-perennial rye, Allergy Mild Verified 09/30/20 15:35 standar mushroom AdvReac Intermediate Stomach Verified 09/30/20 15:35 pain red (food color) AdvReac Intermediate Hives, Verified 09/30/20 15:35 vomiting Review of Systems Review of Systems Narrative: GENERAL: Denies chills, fatigue, malaise, fever, sweats, travel HEENT: Denies sinus pain, ear pain, sore throat, difficulty swallowing, neck pain RESPIRATORY: Denies dyspnea, cough, wheezing, hemoptysis, sputum. CARDIOVASCULAR: Denies chest pain, palpitations, orthopnea, edema GASTROINTESTINAL: See HPI : Denies dysuria, frequency, incontinence, hematuria, urinary retention, flank pain. MUSCULOSKELETAL: Denies weakness, joint pain, or bony pain SKIN: No rash, no erythema, no pruritus NEUROLOGIC: Denies weakness, dizziness, headache, numbness, change in speech, confusion PSYCHIATRIC: No concerning psychosocial issues. 12 point review of systems is negative except for those stated above and HPI Patient History Medical History Abnormal vaginal bleeding (~2020) Acid reflux (~1999) Anxiety (~2009) Asthma (~1997) Bipolar 1 disorder (~2015) Bronchitis (~05/2019) Depression (~2009) Fibromyalgia (~2017) Frequent nosebleeds Hypertension (~2019) Low back pain (~2013) Lumbar region somatic dysfunction Migraines (~2001) Pelvic somatic dysfunction Pneumonia (~2015) Sacral region somatic dysfunction Segmental and somatic dysfunction of abdomen and other regions Threatened in first trimester Vaginal bleeding during Family History Mother Impaired sense of smell Obesity Chronic tachycardia Father Depression Anxiety Bipolar 1 disorder Hypertension Hyperlipidemia Degenerative disc disease, lumbar Fibromyalgia Asthma Diabetes mellitus Grandmother History of hip replacement Knee joint replacement status Grandfather Alcoholic Liver disease Grandmother No problems noted. 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 ) special ekta needs: No seatbelt use: always do you feel safe at home: Yes Smoking Status: Former smoker Tobacco: How many years used: 2 second hand exposure: Yes ( smokes, but he goes outside. ) alcohol intake: never substance use type: does not use (States she is 'allergic to marijuana, gives her stomach ache'.) during the past year weight has: remained stable well-balanced diet: daily or most days daily servings fruits/ve-4 caffeine: Yes (Coffee, 2 shots espresso about twice a week. ) Type(s) of exercise: swimming frequency: 3-4 times per week Smoking Status: Former smoker alcohol intake frequency: 0-2 drinks per day Substance Use Type: does not use Exam Initial Vital Signs Initial Vital Signs: Vital Signs Temperature 96.6 F L 09/30/20 15:32 Pulse Rate 94 H 09/30/20 15:32 Respiratory Rate 19 09/30/20 15:32 Blood Pressure 179/102 H 09/30/20 15:32 Pulse Oximetry 98 09/30/20 15:32 GENERAL: Alert pleasant 30-year-old gravid female no acute distress HEENT: Head atraumatic,EOMI, pupils reactive, face symmetric, moist mucous membranes CARDIOVASCULAR: Regular rate and rhythm without murmurs, rubs or gallops. RESPIRATORY: Breath sounds equal bilaterally, no wheezes rales or rhonchi. ABDOMEN: Soft, gravid tender along the diaphragm both left and right upper quadrants no guarding or rebound, lower abdominal pain central suprapubic no significant right-sided pain : No CVA tenderness EXTREMITIES: Normal range of motion, no clubbing or edema. Neurovascularly intact NEUROLOGICAL: Alert and oriented x4. SKIN: Warm, dry, no laceration, no petechiae, no rashes or lesions. Course Orders Ordered: Discontinued Medications Sodium Chloride (Normal Saline 0.9%) 1,000 mls @ 1,000 mls/hr IV BOLUS ONE Stop: 09/30/20 17:42 Last Admin: 09/30/20 18:22 Dose: 1,000 mls/hr Documented by: [email or web address] Vital Signs Vital signs: Vital Signs - 8 hr 09/30/20 18:42 Blood Pressure 142/85 H MDM - Abdominal Pain Lab Data Attestation: I reviewed the patient's lab results. Result diagrams: 09/30/20 17:00 09/30/20 17:00 Labs: Lab Results 09/30/20 09/30/20 Range/Units 17:00 17:00 WBC 13.0 H (4.5-11.0) X10^3/uL RBC 4.38 (4.0-5.2) X10^6/uL Hgb 12.5 (12.0-16.0) g/dL Hct 37.0 (36-46) % MCV 84.5 (80-100) fL MCH 28.6 (26-34) PG MCHC 33.8 (30-36) % RDW 14.7 (11.6-14.8) % Plt Count 322 (150-400) X10^3/uL Neut % (Auto) 72.3 (50-75) % Lymph % (Auto) 16.6 L (25-40) % [place] % (Auto) 6.9 (3-14) % Eos % (Auto) 3.6 (2-4) % Baso % (Auto) 0.6 (0-2) % Neut # (Auto) 9400 H (7901-8589) /uL Lymph # (Auto) 2200 (4138-8113) /uL [place] # (Auto) 900 (0-900) /uL Eos # (Auto) 500 H (0-450) /uL Baso # (Auto) 100 (0-100) /uL Sodium 135 L (137-145) mmol/L Potassium 3.9 (3.4-5.1) mmol/L Chloride 103 (98-107) mmol/L Carbon Dioxide 24 (22-32) mmol/L BUN 9 (7-17) mg/dL Creatinine 0.58 (0.52-1.04) mg/dL Estimated GFR > 60.0 (>60) mL/min BUN/Creatinine Ratio 15.5 (6-22) Glucose 92 (70-100) mg/dL Calcium 10.6 H (8.4-10.2) mg/dL Total Bilirubin 0.2 (0.2-1.3) mg/dL AST 62 H (14-36) IU/L ALT 81 H (<35) IU/L Alkaline Phosphatase 116 (38-126) U/L Total Protein 8.0 (6.3-8.2) g/dL Albumin 4.3 (3.5-5.0) g/dL Globulin 3.7 (1.7-4.1) g/dL Albumin/Globulin Ratio 1.2 (1.0-2.8) Lipase 79 (23-300) U/L Point of care testing: Urine Dip Bedside Urine Glucose Negative Bedside Urine Bilirubin - Negative Bedside Urine Ketone - Negative Urine Specific [place] 1.030 Bedside Urine Occult Blood - Negative Bedside Urine pH 6.0 Bedside Urine Protein - Negative Bedside Urine Urobilinogen - Negative Bedside Urine Nitrite - Negative Bedside Urine Leukocytes - Negative Esterase Imaging Data US - abdomen: Radiologist's Impression: PROCEDURE: US ABDOMEN COMPLETE INDICATIONS: PAIN TECHNIQUE: Real-time scanning was performed of the abdominal and retroperitoneal organs, with image documentation. COMPARISON: None. FINDINGS: Liver: Liver is normal in size and homogeneous in echotexture. Gallbladder: Unremarkable. No stones, gallbladder wall thickening, or pain on examination. Biliary ducts: Intrahepatic bile ducts are non-dilated. Extrahepatic bile duct caliber measures 3.7 mm. Normal is 6-7 mm or less in diameter, or 10 mm or less post-cholecystectomy. Pancreas: Visualized portions of the pancreas are sonographically normal. Spleen: Spleen is normal in size and homogeneous in echotexture. Kidneys: Kidneys are normal in size and echotexture. Right kidney measures 12.4 cm long; left kidney measures 13.3 cm long. No hydronephrosis or nephrolithiasis. No solid masses. Aorta: Visualized aorta is normal in caliber at less than 3 cm. Iliacs: Not visualized secondary to overlying bowel gas. IVC: Intrahepatic inferior vena cava is patent. Miscellaneous: No free abdominal fluid. IMPRESSION: 1. Unremarkable abdominal ultrasound. Dictated by: Be Acosta M.D. on 09/30/2020 at 16:54 MDM Narrative Medical decision making narrative: This time patient's ultrasound blood work overall reassuring. Unclear exactly what is causing her diaphragm like pain. No significant right upper quadrant pain gallbladder on ultrasound is within normal limits. Blood work is overall reassuring. Lower abdominal pain may be round ligament. She was previously at [facility] after an NST and sent to the ED. she is follow up with her OB next week Discharge Plan Departure Patient Disposition: Home Clinical Impression: Abdominal pain affecting Instructions: Common Discomforts and Bodily Changes During Activity Restrictions/Additional Instructions: *You have been diagnosed with abdominal pain in *What to do: At this time baby is healthy ultrasound blood work are reassuring. Increase fluid intake be sure to eat small frequent meals. No need for antibiotics at this time. *Continue to take medications as directed Tylenol 1000 mg every 6 hours if needed for hirj-[id number] pain *Follow up with your primary care provider in 2-3 days *Return to ER if you should have increasing pain persistent vomiting, fever or any new, worsening or concerning symptoms Prescriptions: No Action prenat.vits,lisseth,owd-[id number] Tablet 1 tab PO DAILY RF: 0 metoclopramide HCl [Reglan] 10 mg tablet 10 mg PO Q6H PRN (Reason: nausea and vomiting) Qty: 20 RF: 1 labetalol 100 mg tablet 100 mg PO BID Qty: 60 RF: 5 Referrals: TurnerBonnie MD [Physician] -
[2020-09-30 18:42] VITALS: BP 142/85
--- NOTE | 2020-10-01 06:25 | PM.OBTRLD ---
Visit Information Visit Information Date of evaluation: 09/30/20 Primary OB Provider: Bonnie Quinones Comments/Additional reasons for admission: This patient is a 30-year-old at 28 weeks gestation admitted for evaluation of right upper quadrant pain in the setting of chronic hypertension. Good movement, no loss of fluid, no contractions. Evaluated through emergency room and then sent to Labor and delivery for NST. Vital Signs Vital Signs: 131-145/74-86, hr 90 PFSH Medical History Abnormal vaginal bleeding (~2020) Acid reflux (~1999) Anxiety (~2009) Asthma (~1997) Bipolar 1 disorder (~2015) Bronchitis (~05/2019) Depression (~2009) Fibromyalgia (~2017) Frequent nosebleeds Hypertension (~2019) Low back pain (~2013) Lumbar region somatic dysfunction Migraines (~2001) Pelvic somatic dysfunction Pneumonia (~2015) Sacral region somatic dysfunction Segmental and somatic dysfunction of abdomen and other regions Threatened in first trimester Vaginal bleeding during Family History Mother Impaired sense of smell Obesity Chronic tachycardia Father Depression Anxiety Bipolar 1 disorder Hypertension Hyperlipidemia Degenerative disc disease, lumbar Fibromyalgia Asthma Diabetes mellitus Grandmother History of hip replacement Knee joint replacement status Grandfather Alcoholic Liver disease Grandmother No problems noted. Grandfather Hypertension Social History marital status: number of children: 1 household members: spouse lives independently: Yes caregiver/support person: No housing: house pets and animals: No education level: high school occupational status: employed current occupational exposures/hazards: Yes (Stays away from pool chemicals. ) special ekta needs: No seatbelt use: always do you feel safe at home: Yes Smoking Status: Former smoker Tobacco: How many years used: 2 second hand exposure: Yes ( smokes, but he goes outside. ) alcohol intake: never substance use type: does not use during the past year weight has: remained stable well-balanced diet: daily or most days daily servings fruits/ve-4 caffeine: Yes (Coffee, 2 shots espresso about twice a week. ) Type(s) of exercise: swimming frequency: 3-4 times per week Review of Systems Constitutional Constitutional: Reports system reviewed and no additional complaints, except as documented Cardiovascular Cardiovascular: Reports system reviewed and no additional complaints, except as documented Respiratory Respiratory: Reports system reviewed and no additional complaints, except as documented Gastrointestinal Gastrointestinal: Reports system reviewed and no additional complaints, except as documented Genitourinary Genitourinary: Reports system reviewed and no additional complaints, except as documented Neurologic Neurologic: Reports system reviewed and no additional complaints, except as documented Exam Vital Signs (past 8 hours): Oxygen Delivery Method Room Air Objective Labs Result Diagrams: 09/30/20 17:00 09/30/20 17:00 Labs: Laboratory Results - last 24 hr 09/30/20 09/30/20 17:00 17:00 WBC 13.0 H RBC 4.38 Hgb 12.5 Hct 37.0 MCV 84.5 MCH 28.6 MCHC 33.8 RDW 14.7 Plt Count 322 Neut % (Auto) 72.3 Lymph % (Auto) 16.6 L [place] % (Auto) 6.9 Eos % (Auto) 3.6 Baso % (Auto) 0.6 Neut # (Auto) 9400 H Lymph # (Auto) 2200 [place] # (Auto) 900 Eos # (Auto) 500 H Baso # (Auto) 100 Sodium 135 L Potassium 3.9 Chloride 103 Carbon Dioxide 24 BUN 9 Creatinine 0.58 Estimated GFR > 60.0 BUN/Creatinine Ratio 15.5 Glucose 92 Calcium 10.6 H Total Bilirubin 0.2 AST 62 H ALT 81 H Alkaline Phosphatase 116 Total Protein 8.0 Albumin 4.3 Globulin 3.7 Albumin/Globulin Ratio 1.2 Lipase 79 Evaluation Evaluation Baseline heart rate: 135 Variability: Average (6-10) monitor accelerations: Present (Ten by 10s, appropriate for gestational age) Monitor Decelerations: Absent Category of Tracing: Appropriate for gestational age Status: Category l Laboratory results: Laboratory Tests 09/30/20 09/30/20 17:00 17:00 WBC 13.0 H RBC 4.38 Hgb 12.5 Hct 37.0 MCV 84.5 MCH 28.6 MCHC 33.8 RDW 14.7 Plt Count 322 Neut % (Auto) 72.3 Lymph % (Auto) 16.6 L [place] % (Auto) 6.9 Eos % (Auto) 3.6 Baso % (Auto) 0.6 Neut # (Auto) 9400 H Lymph # (Auto) 2200 [place] # (Auto) 900 Eos # (Auto) 500 H Baso # (Auto) 100 Sodium 135 L Potassium 3.9 Chloride 103 Carbon Dioxide 24 BUN 9 Creatinine 0.58 Estimated GFR > 60.0 BUN/Creatinine Ratio 15.5 Glucose 92 Calcium 10.6 H Total Bilirubin 0.2 AST 62 H ALT 81 H Alkaline Phosphatase 116 Total Protein 8.0 Albumin 4.3 Globulin 3.7 Albumin/Globulin Ratio 1.2 Lipase 79 Diagnosis, Plan/Disposition Plan/Disposition Plan: Patient is status post negative evaluation for PIH and gallstone disease, for discharge home with precautions and close outpatient follow-up. OB Disposition: home
--- NOTE | 2020-11-30 13:50 | PC.NURSE ---
IV late entry- IV fluids DC'd at 1830 prior to discharge per RN
== END 2020-09-30 19:00 | disposition home or self-care (01) ==
PROVIDERS: Emergency Medicine; Emergency Provider Emergency Medicine
DX: O26.892 Other specified pregnancy related conditions, second trimester (principal); R10.10 Upper abdominal pain, unspecified; R10.30 Lower abdominal pain, unspecified; R11.0 Nausea; O10.912 Unspecified pre-existing hypertension complicating pregnancy, second trimester; Z3A.27 27 weeks gestation of pregnancy
CPT/HCPCS: 59025; 76700; 80053; 81003; 83690; 85025; 99283; 99284

== ENCOUNTER → 2020-10-05 07:49 | Outpatient (CLI) | payer OTHER, SELFPAY ==
[2020-10-05 10:25] LABS: Glucose Fasting Gestational 88 mg/dL (76-95)
[2020-10-05 10:27] LABS: Glucose 1 Hour Gest 177 mg/dL (76-180)
[2020-10-05 10:53] LABS: Glucose 2 Hour Gest 180 mg/dL (76-155)
[2020-10-05 11:13] LABS: Glucose Tol Interp,Gestational INTERPRETATION
[2020-10-05 12:31] LABS: Glucose 3 Hour Gest 111 mg/dL (76-140)
== END ==
PROVIDERS: PCP Family Medicine; Referring Provider Obstetrics & Gynecology; Visit Provider Obstetrics & Gynecology
DX: O99.810 Abnormal glucose complicating pregnancy (principal)
CPT/HCPCS: 36415; 82951; 82952

== ENCOUNTER → 2020-10-08 08:57 | Outpatient (CLI) | payer OTHER, SELFPAY ==
[2020-10-08 09:33] LABS: Add Manual Diff / Slide Review NO; Basophils Absolute Auto 0 /uL (0-100); Basophils Percent Auto 0.2 % (0-2); Eosinophils Absolute Auto 300 /uL (0-450); Eosinophils Percent Auto 2.9 % (2-4); Hematocrit 35.2 % (36-46); Hemoglobin 11.7 g/dL (12.0-16.0); Lymphocytes Absolute Auto 1600 /uL (1100-4500); Lymphocytes Percent Auto 13.3 % (25-40); Mean Corpuscular HGB Conc 33.1 % (30-36); Mean Corpuscular Hemoglobin 27.9 PG (26-34); Mean Corpuscular Volume 84.3 fL (80-100); Monocytes Absolute Auto 800 /uL (0-900); Monocytes Percent Auto 6.9 % (3-14); Neutrophils Absolute Auto 9000 /uL (1500-7000); Neutrophils Percent Auto 76.7 % (50-75); Platelet Count 287 X10^3/uL (150-400); Red Blood Cell Count 4.18 X10^6/uL (4.0-5.2); Red Cell Distribution Width 14.3 % (11.6-14.8); White Blood Cell Count 11.8 X10^3/uL (4.5-11.0)
[2020-10-08 09:58] LABS: PTT Partial Thromboplastin Tim 36 SECONDS (26.4-36.2); Prothrombin Time 11.4 SECONDS (10.1-12.7)
[2020-10-08 10:30] LABS: Alanine Aminotransferase 79 IU/L (<35); Albumin 3.7 g/dL (3.5-5.0); Albumin Globulin Ratio 1.1 (1.0-2.8); Alkaline Phosphatase 114 U/L (38-126); Amylase 62 U/L (30-110); Aspartate Aminotransferase 53 IU/L (14-36); BUN Creatinine Ratio 15.5 (6-22); Bilirubin Total 0.2 mg/dL (0.2-1.3); Blood Urea Nitrogen 9 mg/dL (7-17); Calcium 9.4 mg/dL (8.4-10.2); Carbon Dioxide 21 mmol/L (22-32); Chloride 109 mmol/L (98-107); Estimated Glomerular Filt Rate > 60.0 mL/min (>60); Globulin 3.4 g/dL (1.7-4.1); Glucose 107 mg/dL (70-100); HEMOLYSIS < 15 (0-50); Lactate Dehydrogenase 369 U/L (313-618); Lipase 64 U/L (23-300); Potassium 3.8 mmol/L (3.4-5.1); Sodium 136 mmol/L (137-145); Total Protein 7.1 g/dL (6.3-8.2); Uric Acid 5.4 mg/dL (2.5-6.2)
== END ==
PROVIDERS: Referring Provider Obstetrics & Gynecology; Visit Provider Obstetrics & Gynecology
DX: R79.89 Other specified abnormal findings of blood chemistry (principal)
CPT/HCPCS: 36415; 80053; 82150; 83615; 83690; 84550; 85025; 85610; 85730

== ENCOUNTER 2020-11-05 13:07 | Outpatient (CLI) | payer OTHER, SELFPAY ==
[2020-11-05 13:48] LABS: Add Manual Diff / Slide Review NO; Basophils Absolute Auto 0 /uL (0-100); Basophils Percent Auto 0.3 % (0-2); Eosinophils Absolute Auto 100 /uL (0-450); Eosinophils Percent Auto 0.9 % (2-4); Hematocrit 35.6 % (36-46); Hemoglobin 11.9 g/dL (12.0-16.0); Lymphocytes Absolute Auto 1600 /uL (1100-4500); Lymphocytes Percent Auto 15.3 % (25-40); Mean Corpuscular HGB Conc 33.5 % (30-36); Mean Corpuscular Hemoglobin 28.1 PG (26-34); Monocytes Absolute Auto 700 /uL (0-900); Monocytes Percent Auto 6.9 % (3-14); Neutrophils Absolute Auto 8200 /uL (1500-7000); Neutrophils Percent Auto 76.6 % (50-75); Platelet Count 301 X10^3/uL (150-400); Red Blood Cell Count 4.23 X10^6/uL (4.0-5.2); Red Cell Distribution Width 14.2 % (11.6-14.8); White Blood Cell Count 10.7 X10^3/uL (4.5-11.0)
[2020-11-05 14:06] LABS: Alanine Aminotransferase 83 IU/L (<35); Albumin 3.7 g/dL (3.5-5.0); Albumin Globulin Ratio 1.1 (1.0-2.8); Alkaline Phosphatase 134 U/L (38-126); Aspartate Aminotransferase 56 IU/L (14-36); BUN Creatinine Ratio 16.1 (6-22); Bilirubin Total 0.4 mg/dL (0.2-1.3); Blood Urea Nitrogen 10 mg/dL (7-17); Calcium 10.3 mg/dL (8.4-10.2); Carbon Dioxide 22 mmol/L (22-32); Chloride 107 mmol/L (98-107); Estimated Glomerular Filt Rate > 60.0 mL/min (>60); Globulin 3.4 g/dL (1.7-4.1); Glucose 93 mg/dL (70-100); HEMOLYSIS < 15 (0-50); Lactate Dehydrogenase 353 U/L (313-618); Potassium 3.8 mmol/L (3.4-5.1); Sodium 135 mmol/L (137-145); Total Protein 7.1 g/dL (6.3-8.2); Uric Acid 5.2 mg/dL (2.5-6.2)
== END 2020-11-05 13:50 | disposition home or self-care (01) ==
LOC: LABOR 13:13 → OB 11-06 07:43
PROVIDERS: Referring Provider Obstetrics & Gynecology; Visit Provider Obstetrics & Gynecology
DX: O10.913 Unspecified pre-existing hypertension complicating pregnancy, third trimester (principal); O26.23 Pregnancy care for patient with recurrent pregnancy loss, third trimester; Z3A.32 32 weeks gestation of pregnancy; R79.89 Other specified abnormal findings of blood chemistry
CPT/HCPCS: 59025; 80053; 82570; 83615; 84156; 84550; 85025; G0378; G0379

== ENCOUNTER → 2020-11-05 15:48 | Outpatient (ROUT) | payer OTHER, SELFPAY ==
[2020-11-05 16:51] LABS: Protein (Total) Urine Random 11 mg/dL (0-12); Protein Creatinine Ratio Urine 0.15 GRAM/24H
== END ==
PROVIDERS: Visit Provider Obstetrics & Gynecology
DX: R79.89 Other specified abnormal findings of blood chemistry (principal)
CPT/HCPCS: 82570; 84156

== ENCOUNTER 2020-11-16 20:23 | Outpatient (CLI) | payer OTHER, SELFPAY | END 2020-11-16 21:15 | disposition home or self-care (01) | LOC: OB 11-19 09:49 | PROVIDERS: Referring Provider Family Medicine; Visit Provider Family Medicine | DX: O47.03 False labor before 37 completed weeks of gestation, third trimester (principal); O10.913 Unspecified pre-existing hypertension complicating pregnancy, third trimester; Z3A.34 34 weeks gestation of pregnancy | CPT/HCPCS: 59025; G0378; G0379 ==

== ENCOUNTER → 2020-11-23 10:50 | Outpatient (CLI) | payer OTHER, SELFPAY ==
[2020-11-24 10:28] LABS: Strep Grp B PCR NEG for Grp B Strep
== END ==
PROVIDERS: Visit Provider Obstetrics & Gynecology
DX: Z34.83 Encounter for supervision of other normal pregnancy, third trimester (principal); Z3A.35 35 weeks gestation of pregnancy
CPT/HCPCS: 87653

== ENCOUNTER 2020-11-23 11:19 | Outpatient (CLI) | payer OTHER, SELFPAY ==
--- NOTE | 2020-11-23 12:34 | P.TNLD_ITS ---
Visit Information Visit Information Date of evaluation: 11/23/20 Primary OB Provider: Lisa Delgado On-call OB Provider: Harriet Gomez Reason for Evaluation: Yes non-stress test non-stress test reason: hypertension/pre-eclampsia [facility] Medical History Abnormal vaginal bleeding (~2020) Acid reflux (~1999) Anxiety (~2009) Asthma (~1997) Bipolar 1 disorder (~2015) Bronchitis (~05/2019) Depression (~2009) Fibromyalgia (~2017) Frequent nosebleeds Hypertension (~2019) Low back pain (~2013) Lumbar region somatic dysfunction Migraines (~2001) Pelvic somatic dysfunction Pneumonia (~2015) Sacral region somatic dysfunction Segmental and somatic dysfunction of abdomen and other regions Threatened in first trimester Vaginal bleeding during Family History Mother Impaired sense of smell Obesity Chronic tachycardia Father Depression Anxiety Bipolar 1 disorder Hypertension Hyperlipidemia Degenerative disc disease, lumbar Fibromyalgia Asthma Diabetes mellitus Grandmother History of hip replacement Knee joint replacement status Grandfather Alcoholic Liver disease Grandmother No problems noted. Grandfather Hypertension Social History marital status: number of children: 1 household members: spouse lives independently: Yes caregiver/support person: No housing: house pets and animals: No education level: high school occupational status: employed current occupational exposures/hazards: Yes (Stays away from pool chemicals. ) special ekta needs: No seatbelt use: always do you feel safe at home: Yes Smoking Status: Former smoker Tobacco: How many years used: 2 second hand exposure: Yes ( smokes, but he goes outside. ) alcohol intake: never substance use type: does not use during the past year weight has: remained stable well-balanced diet: daily or most days daily servings fruits/ve-4 caffeine: Yes (Coffee, 2 shots espresso about twice a week. ) Type(s) of exercise: swimming frequency: 3-4 times per week Evaluation Evaluation Baseline heart rate: 130 Variability: Average (6-10) monitor accelerations: Present Monitor Decelerations: Absent Category of Tracing: Reactive Status: Category l Diagnosis, Plan/Disposition Final Diagnosis (1) Hypertension affecting : Status: Acute (2) 35 weeks gestation of : Status: Acute Plan/Disposition Plan: Reactive nonstress test patient home to continue her weekly evaluations. OB Disposition: home
== END 2020-11-23 12:39 | disposition home or self-care (01) ==
LOC: LABOR 12:11 → OB 11-26 07:34
PROVIDERS: Referring Provider Obstetrics & Gynecology; Visit Provider Obstetrics & Gynecology
DX: O10.913 Unspecified pre-existing hypertension complicating pregnancy, third trimester (principal); Z3A.35 35 weeks gestation of pregnancy
CPT/HCPCS: 59025; 87653; G0378; G0379

== ENCOUNTER 2020-11-29 12:56 | Outpatient (CLI) | payer OTHER, SELFPAY | END 2020-11-29 13:50 | disposition home or self-care (01) | LOC: LABOR 14:06 → OB 12-03 13:03 | PROVIDERS: Referring Provider Obstetrics & Gynecology; Visit Provider Obstetrics & Gynecology | DX: O10.913 Unspecified pre-existing hypertension complicating pregnancy, third trimester (principal); Z3A.36 36 weeks gestation of pregnancy | CPT/HCPCS: 59025; G0378; G0379 ==

== ENCOUNTER 2020-12-05 14:32 | Outpatient (CLI) | payer OTHER, SELFPAY | END 2020-12-05 15:15 | disposition home or self-care (01) | LOC: LABOR 15:07 → OB 12-06 13:20 | PROVIDERS: Referring Provider Obstetrics & Gynecology; Visit Provider Obstetrics & Gynecology | DX: O10.913 Unspecified pre-existing hypertension complicating pregnancy, third trimester (principal); Z3A.37 37 weeks gestation of pregnancy | CPT/HCPCS: 59025; G0378; G0379 ==

== ENCOUNTER 2020-12-12 10:55 | Outpatient (CLI) | payer OTHER, SELFPAY | END 2020-12-12 11:50 | disposition home or self-care (01) | LOC: LABOR 11:48 → OB 01-02 13:01 | PROVIDERS: Referring Provider Specialist; Visit Provider Specialist | DX: O10.913 Unspecified pre-existing hypertension complicating pregnancy, third trimester (principal); Z3A.38 38 weeks gestation of pregnancy | CPT/HCPCS: 59025; G0378; G0379 ==

== ENCOUNTER 2020-12-19 17:52 | Inpatient (IN) | payer OTHER, SELFPAY ==
[2020-12-19 21:16] VITALS: BP 117/84
[2020-12-19 21:28] LABS: Add Manual Diff / Slide Review NO; Basophils Absolute Auto 0 /uL (0-100); Basophils Percent Auto 0.3 % (0-2); Eosinophils Absolute Auto 200 /uL (0-450); Eosinophils Percent Auto 2.2 % (2-4); Hematocrit 36.2 % (36-46); Hemoglobin 11.9 g/dL (12.0-16.0); Lymphocytes Absolute Auto 1900 /uL (1100-4500); Lymphocytes Percent Auto 16.8 % (25-40); Monocytes Absolute Auto 800 /uL (0-900); Neutrophils Absolute Auto 8200 /uL (1500-7000); Neutrophils Percent Auto 73.7 % (50-75); Platelet Count 256 X10^3/uL (150-400); Red Blood Cell Count 4.26 X10^6/uL (4.0-5.2); Red Cell Distribution Width 14.4 % (11.6-14.8); White Blood Cell Count 11.1 X10^3/uL (4.5-11.0)
[2020-12-19 23:10] LABS: COVID19 - ADMIT (NP swab/PCR) Negative (Negative)
[2020-12-20] MEDS: ZOLPIDEM 5 MG TABLET 10 MG PO (01:34)
[2020-12-20] MEDS: DINOPROSTONE VAG (CERVIDIL) 10 MG VAG (01:35)
[2020-12-20] MEDS: LACTATED RINGERS 1,000 ML 100 ML IV (14:12)
[2020-12-20] MEDS: OXYTOCIN PREMIX 30 UNIT/500 ML PLAST..BAG IV (14:13)
[2020-12-20 16:52] VITALS: BP 137/75; PULSE 74
[2020-12-20] MEDS: LABETALOL 100 MG TABLET PO ×2 (16:52→20:19)
--- NOTE | 2020-12-20 18:12 | P.HPOB_ITS ---
OB HPI Date/Time Date of admission: 12/19/20 Date Patient Seen: 12/20/20 Time Patient Seen: 07:30 History of Present Condition Chief complaint: LABOR : 6 Para: 0 Estimated Date of Delivery: 12/26/20 Estimated Gestational Age (weeks): 39+1 Narrative: Viraj Coyle is a 30 year old female 6 para 0 at 39- ,1/7 weeks gestation who presented last night for cervical ripening and induction of labor due to gestational hypertension. Her Cervidil was placed at 1:30 a.m.. She is feeling some mild contractions. Indications Indication for induction OB: gestational HTN/pre-eclampsia History of Present care: good care, initiated at week # (11), number of visits (15) and pounds weight gain (23) Dating criteria: LMP confirmed by 1st trimester US Ultrasounds: normal 1st trimester US and normal mid trimester US Obstetrical complications: gestational hypertension Medical complications: none Preadmission Labs Blood type: O (+) positive -: Antibody screen: negative, GBS status: negative, HBsAG: negative, HIV: negative and RPR/VDLR: negative -: Chlamydia screen: not detected and Gonorrhea screen: not detected -: Rubella: immune and Varicella: immune HCT: 36.2 HCAB: negative PAP: Normal Quad screen: Normal Urine: Negative 1 hr GTT: 173 3 hr GTT: 1 hr (177), 2 hr (180) and 3 hr (111) Fasting blood glucose: 88 Prior (ies) History: 5 miscarriages Evaluation Evaluation Baseline heart rate: 135 Variability: Moderate (11-25) monitor accelerations: Present Monitor Decelerations: Absent Contraction Frequency (minutes): 5 Uterine Contraction Intensity: Mild Status: Category l [facility] Medical History Abnormal vaginal bleeding (~2020) Acid reflux (~1999) Anxiety (~2009) Asthma (~1997) Bipolar 1 disorder (~2015) Bronchitis (~05/2019) Depression (~2009) Fibromyalgia (~2017) Frequent nosebleeds Hypertension (~2019) Low back pain (~2013) Lumbar region somatic dysfunction Migraines (~2001) Pelvic somatic dysfunction Pneumonia (~2015) Sacral region somatic dysfunction Segmental and somatic dysfunction of abdomen and other regions Threatened in first trimester Vaginal bleeding during Family History Mother Impaired sense of smell Obesity Chronic tachycardia Father Depression Anxiety Bipolar 1 disorder Hypertension Hyperlipidemia Degenerative disc disease, lumbar Fibromyalgia Asthma Diabetes mellitus Grandmother History of hip replacement Knee joint replacement status Grandfather Alcoholic Liver disease Grandmother No problems noted. Grandfather Hypertension Social History marital status: number of children: 1 household members: spouse lives independently: Yes caregiver/support person: No housing: house pets and animals: No education level: high school occupational status: employed current occupational exposures/hazards: Yes (Stays away from pool chemicals. ) special ekta needs: No seatbelt use: always do you feel safe at home: Yes Smoking Status: Never smoker Tobacco: How many years used: 2 second hand exposure: Yes ( smokes, but he goes outside. ) alcohol intake: never substance use type: does not use during the past year weight has: remained stable well-balanced diet: daily or most days daily servings fruits/ve-4 caffeine: Yes (Coffee, 2 shots espresso about twice a week. ) Type(s) of exercise: swimming frequency: 3-4 times per week Meds Home Medications and Allergies Home Medications Medication Instructions Recorded Confirmed Type prenat.vits,lisseth,vdm-zmfg-mavmb 1 tab PO DAILY 06/07/20 12/19/20 History metoclopramide HCl 10 mg tablet 10 mg PO Q6H PRN #20 tab 06/28/20 12/19/20 Rx (Reglan) labetalol 100 mg tablet 100 mg PO BID #60 tab 09/14/20 12/19/20 Rx Allergies Allergy/AdvReac Type Severity Reaction Status Date / Time house dust Allergy Intermediate Verified 12/19/20 20:33 ondansetron Allergy Intermediate ITCHY; Verified 12/19/20 20:33 [From ZOFRAN ( does not HYDROCHLORIDE)] work - makes nausea worse. adhesive tape Allergy Mild Red, itchy Verified 12/19/20 20:33 skin. animal dander Allergy Mild Verified 12/19/20 20:33 grass pollen-perennial rye, Allergy Mild Verified 12/19/20 20:33 standar mushroom AdvReac Intermediate Stomach Verified 12/19/20 20:33 pain red (food color) AdvReac Intermediate Hives, Verified 12/19/20 20:33 vomiting Exam Vital Signs (past 8 hours): - 12/20/20 16:52 Pulse Rate 74 Blood Pressure 137/75 Narrative Exam Narrative: Generally: Patient lying in bed, no acute distress Lungs: Clear to auscultation bilaterally Cardiovascular: Regular rate and rhythm Fundal height: 41 cm Estimated weight 8 lb Extremities: 1+ edema, 1+ DTRs Objective Labs Result Diagrams: 12/19/20 21:00 Labs: Laboratory Results - last 24 hr 12/19/20 12/19/20 12/19/20 21:00 21:00 21:00 WBC 11.1 H RBC 4.26 Hgb 11.9 L Hct 36.2 MCV 85.0 MCH 28.0 MCHC 33.0 RDW 14.4 Plt Count 256 Neut % (Auto) 73.7 Lymph % (Auto) 16.8 L [place] % (Auto) 7.0 Eos % (Auto) 2.2 Baso % (Auto) 0.3 Neut # (Auto) 8200 H Lymph # (Auto) 1900 [place] # (Auto) 800 Eos # (Auto) 200 Baso # (Auto) 0 SARS-CoV-2 (PCR) Negative Blood Type O Positive Antibody Screen Negative Assessment and Plan Assessment and Plan Assessment and Plan narrative: Assessment: 30-year-old 6 para 0 at 39-,1/7 weeks gestation with gestational hypertension status post Cervidil for cervical ripening Plan: Remove the Cervidil at 1:30 p.m., reassess cervix for Pitocin versus repeat Cervidil Time Spent with Patient Total time spent with greater than 50% in coordination of care (as documented) at patient's floor/unit and/or counseling patient:: 15-24 minutes
--- NOTE | 2020-12-20 18:18 | PM.OBPNLAB ---
Date/Time Date Patient Seen: 12/20/20 Time Patient Seen: 18:18 Pain Control Pain control: tolerating well Pelvic Exam Dilation (cm): 1 Effacement (%): 80 station: 0 Contractions Contractions on admission: none Monitor mode: External Pitocin rate (mU/min): 15 Contraction frequency (min): 3 Contraction duration (min): 1 Contraction pattern: Regular Contraction intensity: Mild Status status: Category l Heart Rate Baseline: 145 Monitor Accelerations: Present Monitor Decelerations: Absent Monitor Variability: Moderate Assessment and Plan Assessment: induction ongoing Plan: continuous present management Comments: If no cervical change by 10:00 p.m. this evening, will discontinue Pitocin overnight and restart in the morning
[2020-12-20 20:19] VITALS: BP 153/95; PULSE 80
[2020-12-20 21:33] VITALS: BP 155/81; PULSE 73
[2020-12-21] MEDS: LABETALOL 100 MG TABLET PO ×3 (09:51→16:54)
--- NOTE | 2020-12-21 12:48 | PM.OBPNLAB ---
Date/Time Date Patient Seen: 12/21/20 Time Patient Seen: 12:48 Pelvic Exam Dilation (cm): 1 Effacement (%): 80 Amniotic membrane status: Intact Contractions Contractions on admission: none Monitor mode: External Pitocin rate (mU/min): 0 Contraction pattern: Regular Status status: Category l Heart Rate Baseline: 135 Monitor Accelerations: Present Monitor Decelerations: Absent Monitor Variability: Moderate Assessment and Plan Comments: Assessment: Induction paused due to staffing Plan: Pitocin this afternoon Discussed with patient and her . Continue Labetolol 100mg TID
[2020-12-21 20:26] LABS: Add Manual Diff / Slide Review NO; Basophils Absolute Auto 100 /uL (0-100); Basophils Percent Auto 0.7 % (0-2); Eosinophils Absolute Auto 200 /uL (0-450); Eosinophils Percent Auto 2.3 % (2-4); Hematocrit 36.4 % (36-46); Lymphocytes Absolute Auto 1900 /uL (1100-4500); Lymphocytes Percent Auto 19.3 % (25-40); Mean Corpuscular Hemoglobin 28.1 PG (26-34); Mean Corpuscular Volume 85.1 fL (80-100); Monocytes Absolute Auto 800 /uL (0-900); Monocytes Percent Auto 7.6 % (3-14); Neutrophils Absolute Auto 7100 /uL (1500-7000); Neutrophils Percent Auto 70.1 % (50-75); Platelet Count 246 X10^3/uL (150-400); Red Blood Cell Count 4.28 X10^6/uL (4.0-5.2); Red Cell Distribution Width 14.6 % (11.6-14.8); White Blood Cell Count 10.1 X10^3/uL (4.5-11.0)
[2020-12-21 20:41] LABS: Aspartate Aminotransferase 75 IU/L (14-36); BUN Creatinine Ratio 19.5 (6-22); Blood Urea Nitrogen 15 mg/dL (7-17); Estimated Glomerular Filt Rate > 60.0 mL/min (>60); Uric Acid 7.4 mg/dL (2.5-6.2)
[2020-12-22] MEDS: ZOLPIDEM 5 MG TABLET 10 MG PO (02:46)
[2020-12-22] MEDS: OXYTOCIN PREMIX 30 UNIT/500 ML PLAST..BAG IV (04:26)
[2020-12-22] MEDS: LACTATED RINGERS 1,000 ML 100 ML IV ×2 (04:29→14:28)
[2020-12-22 09:07] VITALS: BP 141/80; PULSE 75
[2020-12-22] MEDS: LABETALOL 100 MG TABLET PO ×4 (09:07→21:21)
[2020-12-22 09:31] VITALS: BP 142/82; PULSE 78
--- NOTE | 2020-12-22 09:39 | PM.OBPNLAB ---
Date/Time Date Patient Seen: 12/22/20 Time Patient Seen: 09:39 Pain Control Pain control: tolerating well Pelvic Exam Dilation (cm): 1 Effacement (%): 80 station: 0 Amniotic membrane status: Intact Contractions Contractions on admission: regular Monitor mode: External Pitocin rate (mU/min): 12 Contraction frequency (min): 3 Contraction pattern: Regular Contraction intensity: Mild Status status: Category l Heart Rate Baseline: 125 Monitor Accelerations: Present Monitor Decelerations: Absent Monitor Variability: Moderate Assessment and Plan Assessment: induction ongoing Comments: Patient denies headaches, scotomata, epigastric pain. No leakage of fluid. She has been feeling the baby move. Patient's blood pressures are stable although she did have 1 elevated blood pressure of 182/101 yesterday most blood pressure's in the 140/80 range. Patient did have elevated liver function and uric acid yesterday.
[2020-12-22 13:13] VITALS: TEMP 36.3
[2020-12-22] MEDS: ACETAMINOPHEN 325 MG TABLET 650 MG PO (13:13)
[2020-12-22 13:29] VITALS: BP 139/70; PULSE 76
--- NOTE | 2020-12-22 15:24 | PM.OBPNLAB ---
Date/Time Date Patient Seen: 12/22/20 Time Patient Seen: 15:24 Pain Control Pain control: tolerating well Pelvic Exam Dilation (cm): 2 Effacement (%): 80 station: 0 Amniotic membrane status: Ruptured (AROM for clear fluid) Contractions Contractions on admission: regular Monitor mode: External Pitocin rate (mU/min): 22 Contraction frequency (min): 3 Contraction pattern: Regular Contraction intensity: Mild Status status: Category l Heart Rate Baseline: 130 Monitor Accelerations: Present Monitor Decelerations: Absent Monitor Variability: Moderate Assessment and Plan Assessment: induction ongoing (AROMed continue pitocin) Comments: Patient had a mild headache earlier that has resolved. No scotomata or epigastric pain.
[2020-12-22] MEDS: FENT 2MCG/ML BUPIV 0.125% EPI 200 MCG/100 ML PLAST..BAG 8 MCG EPIDURAL (16:24)
--- NOTE | 2020-12-22 16:31 | PM.AN.REGBLK ---
Regional Block Pre-procedure Procedure: Continuous Lumbar Epidural for L&D Attending OB provider: Harriet Gomez PMH/ROS narrative: term induction for GHTN, mildly elevated LFT's and uric acid, platelets normal. Asymptomatic, on labetolol. BMI 47. ASA Class: III (gestational HTN, elevated LFT's and uric acid, BMI 47) Labs: Hct 36.4 % (36-46) 12/21/20 20:20 Plt Count 246 X10^3/uL (150-400) 12/21/20 20:20 Medications: Current Medications Generic Name Dose Route Start Last Admin Trade Name Freq PRN Reason Stop Dose Admin Calcium Carbonate 1,000 mg 12/19/20 20:38 Calcium Carbonate 500 Mg Tab PO Q2H PRN Dyspepsia Diphenhydramine HCl 25 mg 12/22/20 16:28 Diphenhydramine 50 Mg/Ml Vial IV Q10M PRN Pruritis Lactated Ringer's 1,000 mls @ 100 mls/hr 12/19/20 20:45 12/22/20 14:28 Lactated Ringers IV 100 mls/hr CONT YOBANY Administration Oxytocin/Lactated Ringer's 30 unit in 500 mls @ 3 mls/hr 12/20/20 13:35 12/22/20 04:26 Oxytocin Premix IV 3 milliunit/min TITRATE YOBANY 3 mls/hr Administration Protocol 3 MILLIUNIT/MIN FENT 2MCG/ML BUPIV 0.125% EPI 200 mcg in 100 mls @ 8 mls/hr 12/22/20 16:30 Fentanyl/Bupiv/Ns 2mcg/Ml - 0.125% EPIDURAL CONT YOBANY Labetalol HCl 100 mg 12/22/20 09:00 12/22/20 13:29 Labetalol 100 Mg Tablet PO 100 mg QID YOBANY Administration Nalbuphine HCl 2.5 mg 12/22/20 16:28 Nalbuphine 20 Mg/Ml Ampul IV Q10M PRN Pruritis Zolpidem Tartrate 10 mg 12/19/20 20:38 12/22/20 02:46 Zolpidem 5 Mg Tablet PO 5 mg BEDTIME PRN Administration Sleep Allergies: Allergies Allergy/AdvReac Type Severity Reaction Status Date / Time house dust Allergy Intermediate Verified 12/19/20 20:33 ondansetron Allergy Intermediate ITCHY; Verified 12/19/20 20:33 [From ZOFRAN ( does not HYDROCHLORIDE)] work - makes nausea worse. adhesive tape Allergy Mild Red, itchy Verified 12/19/20 20:33 skin. animal dander Allergy Mild Verified 12/19/20 20:33 grass pollen-perennial rye, Allergy Mild Verified 12/19/20 20:33 standar mushroom AdvReac Intermediate Stomach Verified 12/19/20 20:33 pain red (food color) AdvReac Intermediate Hives, Verified 12/19/20 20:33 vomiting Procedure Insertion date: 12/22/20 Insertion time: 16:06 Prep/Local: betadine x3 and 1% lidocaine Interspace: L3-4 Patient position: sitting Needle: 18 gauge Hustead (CSE: 27g [place] through Hustead, clear CSF, 1mL 0.25% bupiv) Loss of resistance with: saline GRACE at (cm): 7 Catheter placed at SKIN (cm): 13 Catheter in SPACE (cm): 6 Insertion: No CSF, No Blood, Yes Paresthesia with insertion, No Paresthesia with injection and No Test dose reaction Initial Medications TEST DOSE time: 16:07 TEST DOSE: 1.5% lidocaine with epinephrine 1:200k (mL): 3 BOLUS DOSE time: 16:21 BOLUS DOSE (mL): 3 BOLUS DOSE med: other (infusate) Infusion INFUSION: 0.125% bupivacaine and with fentanyl 2 mcg/mL Initial rate (mL/hr): 8 Subsequent interventions: 19:20 5mL 0.25% bupiv and 50mcg fentanyl Post-procedure Anesthesia time START: 15:55 Anesthesia time END: 22:29 Post-procedure Anesthesia Assessment: Yes CV function: HR/BP stable, Yes Resp function: RR/sat/airway adequate, Yes Mental status appropriate and No Anesthesia complications
[2020-12-22 18:30] VITALS: BP 124/62; PULSE 68
--- NOTE | 2020-12-22 22:16 | PM.OBPRVD ---
Events: Induced HTN Labor & Delivery Delivery date: 12/22/20 Cervical ripening method: per Cervidil protocol Induction method: per pitocin protocol Delivery augmentation: rupture of membranes Delivery monitor: external FHT and external uterine Route of delivery: L&D Laceration Description: Vaginal - 1st Degree Delivery repair: chromic (3 0) Estimated blood loss (mL): 200 [place] Baby 1: gender: Female Presentation: vertex Position: Right Occiput Anterior Placenta delivery description: Spontaneous Cord Vessel Description: 3 Vessels score (1 min): 8 score (5 min): 9 weight: 7 lb 2 oz Narrative: Patient was admitted for induction for gestational hypertension. She was initially admitted on 12/19 and received Cervidil. She received Pitocin on 12/20. Due to crowding on Labor and delivery patient received Pitocin again on a.m. of 12/22. She was AROM for clear fluid. heart tones category 1 to category 2 throughout labor. The viable female was delivered over a an intact perineum. The infant was placed on maternal abdomen and after the cord stopped pulsating the cord was clamped, cut, and cord bloods obtained. The placenta delivered spontaneously, intact, with 3 vessels. It is U shaped. The patient had no cervical tears. A first-degree vaginal tear but no perineal tears. The vaginal tear was repaired with 3 0 chromic suture. Both infant and mother doing well. Plan for aftercare: Routine care
[2020-12-23] MEDS: DERMOPLAST SPRAY 20% 60 ML 1 SPRAY TOP (01:18)
[2020-12-23] MEDS: ACETAMINOPHEN 325 MG TABLET 650 MG PO ×3 (01:20→20:23)
[2020-12-23] MEDS: LANOLIN OINT 7 GM 1 APPLIC TOP (01:20)
[2020-12-23 05:16] LABS: Add Manual Diff / Slide Review NO; Basophils Absolute Auto 0 /uL (0-100); Basophils Percent Auto 0.2 % (0-2); Eosinophils Absolute Auto 100 /uL (0-450); Eosinophils Percent Auto 0.3 % (2-4); Hematocrit 34.7 % (36-46); Hemoglobin 11.4 g/dL (12.0-16.0); Lymphocytes Absolute Auto 1700 /uL (1100-4500); Lymphocytes Percent Auto 10.3 % (25-40); Mean Corpuscular HGB Conc 32.7 % (30-36); Mean Corpuscular Hemoglobin 27.8 PG (26-34); Monocytes Absolute Auto 900 /uL (0-900); Monocytes Percent Auto 5.5 % (3-14); Neutrophils Absolute Auto 14000 /uL (1500-7000); Neutrophils Percent Auto 83.7 % (50-75); Platelet Count 236 X10^3/uL (150-400); Red Blood Cell Count 4.08 X10^6/uL (4.0-5.2); Red Cell Distribution Width 14.8 % (11.6-14.8); White Blood Cell Count 16.8 X10^3/uL (4.5-11.0)
[2020-12-23 05:25] LABS: Alanine Aminotransferase 63 IU/L (<35)
[2020-12-23 09:08] VITALS: BP 159/94; PULSE 113
[2020-12-23] MEDS: LABETALOL 100 MG TABLET PO ×2 (09:08→20:36)
[2020-12-23] MEDS: PRENATAL VIT,CALC/IRON/FOLIC 1 TABLET 1 TAB PO (09:08)
[2020-12-23 10:00] VITALS: BP 150/89; PULSE 115
--- NOTE | 2020-12-23 14:31 | P.PNOB_ITS ---
Subjective - OB Subjective Patient comments: no complaints [place] baby status: doing well ( Still not nursing well) feeding status: exclusively breast feeding Date Patient Seen: 12/23/20 Time Patient Seen: 14:31 Interval history: Patient states she feels tired but no headaches, scotomata, epigastric pain. She has a small lexus horse in 1 leg but is improving. This started when she was pushing. Patient is ambulatory. She is urinating well. Exam Vital Signs (past 8 hours): - Blood pressure 153/92, pulse 110, temperature 98.7? 12/23/20 09:08 Pulse Rate 113 H Blood Pressure 159/94 H Narrative Exam Narrative: Abdomen is soft, nontender. Uterus is firm, at U, nontender. Mild lochia. Extremities with trace edema and nontender. Objective Labs Result Diagrams: 12/23/20 04:55 12/21/20 20:20 Labs: Laboratory Results - last 24 hr 12/23/20 12/23/20 04:55 04:55 WBC 16.8 H D RBC 4.08 Hgb 11.4 L Hct 34.7 L MCV 85.0 MCH 27.8 MCHC 32.7 RDW 14.8 Plt Count 236 Neut % (Auto) 83.7 H Lymph % (Auto) 10.3 L [place] % (Auto) 5.5 Eos % (Auto) 0.3 L Baso % (Auto) 0.2 Neut # (Auto) 49998 H Lymph # (Auto) 1700 [place] # (Auto) 900 Eos # (Auto) 100 Baso # (Auto) 0 ALT 63 H Assessment & Plan Plan day: 1 plan OB: routine care ( Monitor for worsening preeclampsia) Comments: continue labetalol orally Time Spent With Patient Time: Total time spent is greater than 50% in coordination of care (as documented) at patient's floor/unit and/or counseling patient: Time with patient: less than 15 minutes
[2020-12-24] MEDS: ACETAMINOPHEN 325 MG TABLET 650 MG PO ×3 (04:57→23:29)
[2020-12-24 06:41] LABS: Add Manual Diff / Slide Review NO; Basophils Absolute Auto 100 /uL (0-100); Basophils Percent Auto 0.4 % (0-2); Eosinophils Absolute Auto 400 /uL (0-450); Hematocrit 33.6 % (36-46); Hemoglobin 11.2 g/dL (12.0-16.0); Lymphocytes Absolute Auto 2100 /uL (1100-4500); Lymphocytes Percent Auto 15.9 % (25-40); Mean Corpuscular HGB Conc 33.3 % (30-36); Mean Corpuscular Hemoglobin 28.1 PG (26-34); Mean Corpuscular Volume 84.3 fL (80-100); Monocytes Absolute Auto 1000 /uL (0-900); Monocytes Percent Auto 7.6 % (3-14); Neutrophils Absolute Auto 9700 /uL (1500-7000); Neutrophils Percent Auto 73.1 % (50-75); Platelet Count 242 X10^3/uL (150-400); Red Blood Cell Count 3.99 X10^6/uL (4.0-5.2); White Blood Cell Count 13.3 X10^3/uL (4.5-11.0)
[2020-12-24 06:54] LABS: Alanine Aminotransferase 90 IU/L (<35); Albumin 3.4 g/dL (3.5-5.0); Albumin Globulin Ratio 1.1 (1.0-2.8); Alkaline Phosphatase 143 U/L (38-126); Aspartate Aminotransferase 149 IU/L (14-36); Bilirubin Total 0.3 mg/dL (0.2-1.3); Blood Urea Nitrogen 9 mg/dL (7-17); Calcium 9.6 mg/dL (8.4-10.2); Carbon Dioxide 26 mmol/L (22-32); Chloride 105 mmol/L (98-107); Estimated Glomerular Filt Rate > 60.0 mL/min (>60); Globulin 3.2 g/dL (1.7-4.1); Glucose 87 mg/dL (70-100); HEMOLYSIS < 15 (0-50); Potassium 4.1 mmol/L (3.4-5.1); Sodium 136 mmol/L (137-145); Total Protein 6.6 g/dL (6.3-8.2)
[2020-12-24] MEDS: PRENATAL VIT,CALC/IRON/FOLIC 1 TABLET 1 TAB PO (08:40)
[2020-12-24 08:50] VITALS: BP 156/104; PULSE 66
[2020-12-24] MEDS: LABETALOL 100 MG TABLET 200 MG PO (08:50)
--- NOTE | 2020-12-24 08:55 | PM.OBPN.1 ---
Subjective - OB Subjective Patient comments: pain well controlled, tolerating diet and flatus present [place] baby status: doing well feeding status: exclusively breast feeding Narrative: Patient denies headaches, scotomata, epigastric pain. Date Patient Seen: 12/24/20 Time Patient Seen: 08:55 Exam Vital Signs (past 8 hours): - 12/24/20 08:50 Pulse Rate 66 Blood Pressure 156/104 H Narrative Exam Narrative: Abdomen is soft, nontender. Uterus is firm, at U, nontender. Mild lochia. Extremities with trace edema and nontender. DTRs are brisk with no clonus. Objective Labs Result Diagrams: 12/24/20 06:30 12/24/20 06:30 Labs: Laboratory Results - last 24 hr 12/24/20 12/24/20 06:30 06:30 WBC 13.3 H RBC 3.99 L Hgb 11.2 L Hct 33.6 L MCV 84.3 MCH 28.1 MCHC 33.3 RDW 15.0 H Plt Count 242 Neut % (Auto) 73.1 Lymph % (Auto) 15.9 L [place] % (Auto) 7.6 Eos % (Auto) 3.0 Baso % (Auto) 0.4 Neut # (Auto) 9700 H Lymph # (Auto) 2100 [place] # (Auto) 1000 H Eos # (Auto) 400 Baso # (Auto) 100 Sodium 136 L Potassium 4.1 Chloride 105 Carbon Dioxide 26 BUN 9 Creatinine 0.75 Estimated GFR > 60.0 BUN/Creatinine Ratio 12.0 Glucose 87 Calcium 9.6 Total Bilirubin 0.3 AST 149 H ALT 90 H Alkaline Phosphatase 143 H Total Protein 6.6 Albumin 3.4 L Globulin 3.2 Albumin/Globulin Ratio 1.1 Assessment & Plan Plan day: 2 plan OB: routine care Comments: Patient with worsening blood pressure and preeclampsia labs. No headaches or scotomata but brisk reflexes. Will increase blood pressure medicine and monitor for need for magnesium sulfate Time Spent With Patient Time: Total time spent is greater than 50% in coordination of care (as documented) at patient's floor/unit and/or counseling patient: Time with patient: less than 15 minutes
[2020-12-24 14:48] VITALS: BP 146/96; PULSE 78
[2020-12-24] MEDS: LABETALOL 100 MG TABLET PO ×3 (14:48→23:53)
[2020-12-25 06:58] LABS: Add Manual Diff / Slide Review NO; Basophils Absolute Auto 100 /uL (0-100); Basophils Percent Auto 0.9 % (0-2); Eosinophils Absolute Auto 400 /uL (0-450); Eosinophils Percent Auto 3.3 % (2-4); Hematocrit 37.6 % (36-46); Hemoglobin 12.5 g/dL (12.0-16.0); Lymphocytes Absolute Auto 2600 /uL (1100-4500); Lymphocytes Percent Auto 20.9 % (25-40); Mean Corpuscular HGB Conc 33.3 % (30-36); Mean Corpuscular Hemoglobin 28.5 PG (26-34); Mean Corpuscular Volume 85.5 fL (80-100); Monocytes Absolute Auto 800 /uL (0-900); Monocytes Percent Auto 6.2 % (3-14); Neutrophils Absolute Auto 8600 /uL (1500-7000); Neutrophils Percent Auto 68.7 % (50-75); Platelet Count 285 X10^3/uL (150-400); Red Blood Cell Count 4.39 X10^6/uL (4.0-5.2); Red Cell Distribution Width 14.8 % (11.6-14.8); White Blood Cell Count 12.4 X10^3/uL (4.5-11.0)
[2020-12-25 07:10] LABS: Aspartate Aminotransferase 136 IU/L (14-36); Blood Urea Nitrogen 12 mg/dL (7-17); Estimated Glomerular Filt Rate > 60.0 mL/min (>60); Uric Acid 8.3 mg/dL (2.5-6.2)
[2020-12-25 08:20] VITALS: BP 122/65; PULSE 72
[2020-12-25] MEDS: LABETALOL 100 MG TABLET PO (08:20)
[2020-12-25 08:21] VITALS: BP 122/65; PULSE 72
[2020-12-25] MEDS: PRENATAL VIT,CALC/IRON/FOLIC 1 TABLET 1 TAB PO (08:21)
[2020-12-25] MEDS: ACETAMINOPHEN 325 MG TABLET 650 MG PO (08:21)
[2020-12-25] MEDS: LABETALOL 100 MG TABLET 200 MG PO (08:21)
[2020-12-25] MEDS: NIFEdipine 30 MG TAB ER PO (08:22)
--- NOTE | 2020-12-25 08:59 | P.DS_ITS ---
Discharge Providers Provider Date of admission: 12/19/20 17:52 Discharge Date: 12/25/20 Primary care physician: Doctor Osvaldo MD Consults: 12/23/20 22:13 Consult to Motorcycle Service Technician Routine Comment: Discharge provider: Harriet Gomez MD Summary Hospital Course Date Patient Seen: 12/25/20 Time Patient Seen: 09:00 Diagnoses: Preeclampsia, 39 weeks, vaginal delivery with repair of first-degree tear Hospital Course: Patient was admitted for induction for -induced hypertension. She initially received Cervidil. She had her induction delayed due to staffing. She received Pitocin. She had an epidural catheter for pain control. She had a spontaneous vaginal delivery of a viable female infant with a repair of a first-degree tear. Patient's blood pressures continued to escalate with worsening preeclampsia labs . Patient denied any headaches, scotomata, epigastric pain. She is urinating and ambulating well. Her blood pressures are now improving and her labs are improving. She is breast-feeding without difficulty. Peripartum Data Infant Delivery Method: Natural Vaginal Laceration Description: Vaginal - 1st Degree Procedures: Induction with Cervidil and Pitocin. Epidural catheter. Spontaneous vaginal delivery with repair of first-degree tear. complications: other (Preeclampsia) 1: Gender: Female Disposition of : home Discharge Diagnosis (1) Pre-eclampsia affecting childbirth: Status: Acute Status at Discharge Cognitive/behavioral status at discharge: oriented Functional status at discharge: independent ambulation Overall status at discharge: patient is progressing back to baseline Time Spent with Patient Time attestation: Total time spent providing and/or coordinating discharge services: Time spent: Less than 30 minutes Objective Labs Result Diagrams: 12/25/20 06:37 12/25/20 06:37 Labs: Laboratory Results - last 24 hr 12/25/20 12/25/20 06:37 06:37 WBC 12.4 H RBC 4.39 Hgb 12.5 Hct 37.6 MCV 85.5 MCH 28.5 MCHC 33.3 RDW 14.8 Plt Count 285 Neut % (Auto) 68.7 Lymph % (Auto) 20.9 L [place] % (Auto) 6.2 Eos % (Auto) 3.3 Baso % (Auto) 0.9 Neut # (Auto) 8600 H Lymph # (Auto) 2600 [place] # (Auto) 800 Eos # (Auto) 400 Baso # (Auto) 100 BUN 12 Creatinine 0.80 Estimated GFR > 60.0 BUN/Creatinine Ratio 15.0 Uric Acid 8.3 H AST 136 H Exam Vital Signs (past 8 hours): Blood pressure 140/90 with the highest blood pressure in the last 24 hours 155/101. Pulse of 96, temperature 98.6? 12/25/20 08:20 12/25/20 08:21 Pulse Rate 72 72 Blood Pressure 122/65 122/65 Narrative Exam Narrative: Abdomen is soft, nontender. Uterus is firm, at U, nontender. Mild lochia. Repair intact. Extremities with trace edema and nontender. DTRs less than yesterday with no clonus. Discharge Plan Discharge Plan Patient Disposition: Home Discharge orders & Medications Prescriptions: New nifedipine 30 mg Tablet Extended Release 24hr 30 mg PO DAILY Qty: 30 RF: 0 ibuprofen 600 mg Tablet 600 mg PO Q6HR PRN (Reason: Pain, Mild (1-3)) Qty: 20 RF: 0 labetalol 100 mg Tablet 200 mg PO TID Qty: 90 RF: 0 labetalol 200 mg tablet 200 mg PO TID Qty: 90 RF: 0 Continued prenat.vits,lisseth,[id number] Tablet 1 tab PO DAILY RF: 0 Discontinued metoclopramide HCl [Reglan] 10 mg tablet 10 mg PO Q6H PRN (Reason: nausea and vomiting) Qty: 20 RF: 1 labetalol 100 mg tablet 100 mg PO BID Qty: 60 RF: 5 Follow up/Referrals: Harriet Gomez MD [Physician] - (BP check w/ Dr. Gomez's RN @ 10:30am appt w/ Dr. Delgado on @ 9:30 am) Lisa Delgado MD [Physician] - 1 Week (Blood pressure check) Diet/Activity/Treatments Diet: Regular Activity: Nothing in vagina for 6 weeks Skin/Wound/Dressing Care Report to your healthcare provider any signs of infection, such as:: chills, fever and increased pain Visit Report/Discharge Packet Instructions: DI for Pre-eclampsia Stand Alone Forms: Discharge: Care Discharge Data Primary Care Provider: Miscellaneous,Doctor
== END 2020-12-25 10:09 | disposition home or self-care (01) | DRG 807 ==
PROVIDERS: Specialist; Admitting Provider Obstetrics & Gynecology; Referring Provider Obstetrics & Gynecology; Visit Provider Obstetrics & Gynecology
DX: O13.4 Gestational [pregnancy-induced] hypertension without significant proteinuria, complicating childbirth (principal); Z37.0 Single live birth; Z3A.39 39 weeks gestation of pregnancy; O70.0 First degree perineal laceration during delivery; Z20.822 Contact with and (suspected) exposure to COVID-19
CPT/HCPCS: 01967; 36415; 59025; 59050; 59200; 59400; 59409; 80053; 84450; 84460; 84550; 85025; 86850; 86900; 86901; 87635; C9803; G0379; J2590

== ENCOUNTER 2021-11-18 20:07 | Emergency (ER) | payer OTHER, SELFPAY ==
[2021-11-18 20:11] VITALS: BP 167/91; PULSE 88; RESP 20; TEMP 36.7; O2SAT 98
== END 2021-11-19 00:48 | disposition left against medical advice (07) ==
PROVIDERS: Emergency Provider Emergency Medicine
CPT/HCPCS: 99281

== ENCOUNTER 2022-11-19 11:32 | Emergency (ER) | payer OTHER, SELFPAY ==
[2022-11-19 11:42] VITALS: BP 165/94; PULSE 77; RESP 18; TEMP 36.6; O2SAT 99
--- NOTE | 2022-11-19 11:48 | DI.RAD.S_ITS ---
PROCEDURE: XR WRIST LT MIN 3V INDICATIONS: twisted, now painful TECHNIQUE: 4 views of the wrist were acquired. COMPARISON: None. FINDINGS: Bones: No acute fractures or dislocations. No suspicious bony lesions. Scaphoid view: Intact scaphoid Soft tissues: No suspicious soft tissue calcifications. IMPRESSION: No acute osseous abnormality. If clinical suspicion and/or symptoms persist, additional imaging with repeat plain films, or advanced imaging (e.g. CT, MRI) may be helpful for further assessment. Approved by: Alvaro Rodríguez M.D. on 11/19/2022 at 12:36
--- NOTE | 2022-11-19 13:11 | ED.UPPEXIN ---
HPI - Extremity Injury (Upper) <Lisandra Jimenez PA-C - Last Filed: 11/19/22 14:36> General Chief Complaint: Extremity Injury, Upper Stated Complaint: lt wrist injury t-2 Time Seen by Provider: 11/19/22 13:09 Source: patient Mode of arrival: Ambulatory History of Present Illness HPI narrative: Patient is a 32-year-old female who presents with left wrist pain. Pain started 2 days ago after her grabbed her wrist during sexual intercourse. She reports pain along the ulnar side of her wrist and forearm, with visible bruising. She is been applying ice and wearing an [id number]-[id number] splint for support. She endorses a little bit of numbness and tingling in fingers 4 And 5. 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 She is right-handed. She reports feeling safe at home. This injury occurred during the consensual encounter. Related Data Home Medications Medication Instructions Recorded Confirmed prenat.vits,lisseth,men-rhqc-[id number] 1 tab PO DAILY 06/07/20 02/04/21 Previous Rx's Medication Instructions Recorded ibuprofen 600 mg tablet 600 mg PO Q6HR PRN Pain, Mild 12/25/20 (1-3) #20 tabs labetalol 100 mg tablet 200 mg PO TID #90 tabs 12/25/20 labetalol 200 mg tablet 200 mg PO TID Hypertension #90 tabs 12/25/20 nifedipine 30 mg tablet,extended 30 mg PO DAILY #30 tabs 12/25/20 release 24 hr Allergies Allergy/AdvReac Type Severity Reaction Status Date / Time house dust Allergy Intermediate Verified 02/04/21 09:35 ondansetron Allergy Intermediate ITCHY; Verified 02/04/21 09:35 [From ZOFRAN ( does not HYDROCHLORIDE)] work - makes nausea worse. adhesive tape Allergy Mild Red, itchy Verified 02/04/21 09:35 skin. animal dander Allergy Mild Verified 02/04/21 09:35 grass pollen-perennial rye, Allergy Mild Verified 02/04/21 09:35 standar mushroom AdvReac Intermediate Stomach Verified 02/04/21 09:35 pain red (food color) AdvReac Intermediate Hives, Verified 02/04/21 09:35 vomiting Review of Systems <Lisandra Jimenez PA-C - Last Filed: 11/19/22 14:36> Review of Systems ROS Unobtainable: All systems reviewed & are unremarkable except as noted in HPI and below Patient History <Lisandra Jimenez PA-C - Last Filed: 11/19/22 14:36> Medical History Abnormal vaginal bleeding (~2020) Acid reflux (~1999) Anxiety (~2009) Asthma (~1997) Bipolar 1 disorder (~2015) Bronchitis (~05/2019) Depression (~2009) Fibromyalgia (~2017) Frequent nosebleeds Hypertension (~2019) Low back pain (~2013) Lumbar region somatic dysfunction Migraines (~2001) Pelvic somatic dysfunction Pneumonia (~2015) Sacral region somatic dysfunction Segmental and somatic dysfunction of abdomen and other regions Threatened in first trimester Vaginal bleeding during Family History Mother Impaired sense of smell Obesity Chronic tachycardia Father Depression Anxiety Bipolar 1 disorder Hypertension Hyperlipidemia Degenerative disc disease, lumbar Fibromyalgia Asthma Diabetes mellitus Grandmother History of hip replacement Knee joint replacement status Grandfather Alcoholic Liver disease Grandmother No problems noted. Grandfather Hypertension Social History marital status: number of children: 1 household members: spouse lives independently: Yes caregiver/support person: No housing: house pets and animals: No education level: high school occupational status: employed current occupational exposures/hazards: Yes (Stays away from pool chemicals. ) special ekta needs: No seatbelt use: always do you feel safe at home: Yes Smoking Status: Never smoker Tobacco: How many years used: 2 second hand exposure: Yes ( smokes, but he goes outside. ) alcohol intake: never substance use type: does not use during the past year weight has: remained stable well-balanced diet: daily or most days daily servings fruits/ve-4 caffeine: Yes (Coffee, 2 shots espresso about twice a week. ) Type(s) of exercise: swimming frequency: 3-4 times per week Smoking Status: Never smoker alcohol intake frequency: 3 or more drinks per day Substance Use Type: does not use Exam <Lisandra Jimenez PA-C - Last Filed: 11/19/22 14:36> Narrative Exam Narrative: GENERAL: 32 year old patient appears stated age. Well-developed patient NEURO: AOx3. HEAD: Atraumatic. Normocephalic. RESPIRATORY: No distress. EXTREMITIES: Pain to palpation, edema and ecchymosis over ulnar aspect of wrist and distal forearm. Radial and ulnar pulses both 2+. Range of motion, sensation, and strength intact in left fingers. Flexion and extension of left wrist intact. SKIN: No rash or erythema of visible areas Initial Vital Signs Initial Vital Signs: Vital Signs Temperature 97.9 F 11/19/22 11:42 Pulse Rate 77 11/19/22 11:42 Respiratory Rate 18 11/19/22 11:42 Blood Pressure 165/94 H 11/19/22 11:42 Pulse Oximetry 99 11/19/22 11:42 Oxygen Delivery Method Room Air 11/19/22 11:42 <Tyler Felix MD - Last Filed: 12/08/22 21:45> Initial Vital Signs Initial Vital Signs: Vital Signs Temperature 97.9 F 11/19/22 11:42 Pulse Rate 77 11/19/22 11:42 Respiratory Rate 18 11/19/22 11:42 Blood Pressure 165/94 H 11/19/22 11:42 Pulse Oximetry 99 11/19/22 11:42 Oxygen Delivery Method Room Air 11/19/22 11:42 Course <Lisandra Jimenez PA-C - Last Filed: 11/19/22 14:36> Orders Ordered: ED Orders 11/19/22 11:48 XR wrist LT min 3V Stat Vital Signs Vital signs: Vital Signs - 8 hr 11/19/22 11:42 Temperature 97.9 F Pulse Rate 77 Respiratory Rate 18 Blood Pressure 165/94 H Pulse Oximetry 99 Oxygen Delivery Method Room Air <Tyler Felix MD - Last Filed: 12/08/22 21:45> Orders Ordered: ED Orders 11/19/22 11:48 XR wrist LT min 3V Stat Vital Signs Vital signs: Vital Signs - 8 hr 11/19/22 11:42 Temperature 97.9 F Pulse Rate 77 Respiratory Rate 18 Blood Pressure 165/94 H Pulse Oximetry 99 Oxygen Delivery Method Room Air MDM - Extremity Injury (Upper) <Lisandra Jimenez PA-C - Last Filed: 11/19/22 14:36> Imaging Data Extremity x-ray #1: Radiologist's Impression: PROCEDURE:? XR WRIST LT MIN 3V ? INDICATIONS: twisted, now painful ? TECHNIQUE:? 4 views of the wrist were acquired.? ? COMPARISON:? None. ? FINDINGS:? ? Bones:? No acute fractures or dislocations.? No suspicious bony lesions.? ? Scaphoid view:? Intact scaphoid ? Soft tissues:? No suspicious soft tissue calcifications.? ? IMPRESSION:? No acute osseous abnormality.? If clinical suspicion and/or symptoms persist, additional imaging with repeat plain films, or advanced imaging (e.g. CT, MRI) may be helpful for further assessment. ? ? ? Approved by: Alvaro Rodríguez M.D. on 11/19/2022 at 12:36? MDM Narrative Medical decision making narrative: Multiple etiologies for patient's symptoms considered including, but not limited to: Fracture, dislocation, sprain. X-ray without evidence of bony abnormality. Physical exam reassuring, suspect sprain. Advised ice, NSAIDs, brace, elevation. Given work note for 7 days of light duty to allow for rest and healing. If continues to have severe pain or pain is worsening after 1 week, advised to follow up with primary care to repeat x-rays. Patient's symptoms improved over duration of stay with above-stated therapies. Findings and discharge diagnosis discussed with patient/family followed by verbalization of understanding Return precautions discussed with patient/family whom verbalize understanding of diagnosis and plan Discharge Plan Departure Patient Disposition: Home Clinical Impression: Left wrist sprain Instructions: DI for Wrist Sprain Activity Restrictions/Additional Instructions: *You have been diagnosed with left wrist sprain. You can take ibuprofen 600 mg every 6-8 hours as needed for pain. Continue applying ice every 2-3 hours for the next 24 hours. Continue to wear splint when needed for support. If not improving or worsening after 1 week, please follow up with primary care for repeat x-rays. *What to do: *Please continue to take your regular medications as directed. [ ] New medication prescriptions sent to your pharmacy: [ ] [ ] New medication written as a paper prescription [ x] No new medications given *Please follow up with your primary care provider in 2-3 days, call for an appointment. Let them know you were seen in the Emergency Department and that we ask that you be seen in follow up. We will electronically transmit a record of today's note if your PCP is in our system *If you do not have a primary care provider please contact the [facility] Resource line at [phone]. They will ask some questions about your medical history and help get you set up with a doctor in the community. *Return to Emergency Department if you should have any new, worsening or concerning symptoms, such as [fever greater than 101 F, shaking chills, worsening pain, persistent vomiting or other bothersome symptoms] Prescriptions: No Action prenat.vits,lisseth,lpi-agui-grnbu Tablet 1 tab PO DAILY nifedipine 30 mg Tablet Extended Release 24hr 30 mg PO DAILY Qty: 30 0RF ibuprofen 600 mg Tablet 600 mg PO Q6HR PRN (Reason: Pain, Mild (1-3)) Qty: 20 0RF labetalol 100 mg Tablet 200 mg PO TID Qty: 90 0RF labetalol 200 mg tablet 200 mg PO TID Qty: 90 0RF Stand Alone Forms: Patient Portal/API, Work Release Note <Tyler Felix MD - Last Filed: 12/08/22 21:45> [facility]ign [facility] Attestation: I was immediately available in the department for consultation. This documentation has been reviewed and I agree with assessment and plan. Supervised by Tyler Felix MD
--- NOTE | 2022-11-19 13:29 | PC.NURSE ---
Seen and assessed by [facility] without RN involvement
== END 2022-11-19 13:30 | disposition home or self-care (01) ==
PROVIDERS: Emergency Provider Physician Assistant
DX: S63.502A Unspecified sprain of left wrist, initial encounter (principal); X58.XXXA Exposure to other specified factors, initial encounter; Y93.89 Activity, other specified; Y92.9 Unspecified place or not applicable
CPT/HCPCS: 73110; 99283

== ENCOUNTER 2023-08-02 12:01 | Emergency (ER) | payer OTHER, SELFPAY ==
--- NOTE | 2023-08-02 12:17 | ED.UPPEXIN ---
HPI - Extremity Injury (Upper) <Natalia Leung PA-C - Last Filed: 08/02/23 13:34> General Chief Complaint: Fall Stated Complaint: slipped and fell/ landed on R/wrist Time Seen by Provider: 08/02/23 12:10 History of Present Illness HPI narrative: 33-year-old female presents today for fall on an outstretched hands that occurred prior to arrival. She was trying to get into her car stepping off the sidewalk, she had some muddy [place] terrain and lost her footing. She is denying any precipitating events, she did not strike her head and she was able to get up on her own. She demonstrates a fall on an outstretched hand on the right side with her wrist in extension. She states she then slammed her elbow. She is complaining of pain to the wrist and elbow on the right side. No treatment tried. She does not take any blood thinners, she is right-handed dominant. 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 Last menstrual period is July 19, 2023. She is denying any numbness tingling or loss of sensation. She has a history of a ?grade 2 wrist sprain around new year's? with no sequelae. All other systems are reviewed and are negative. Related Data Home Medications Medication Instructions Recorded Confirmed prenat.vits,lisseth,wga-kzid-igosi 1 tab PO DAILY 06/07/20 02/04/21 Previous Rx's Medication Instructions Recorded ibuprofen 600 mg tablet 600 mg PO Q6HR PRN Pain, Mild 12/25/20 (1-3) #20 tabs labetalol 100 mg tablet 200 mg (2 x 100 mg) PO TID #90 tabs 12/25/20 labetalol 200 mg tablet 200 mg PO TID Hypertension #90 tabs 12/25/20 nifedipine 30 mg tablet,extended 30 mg PO DAILY #30 tabs 12/25/20 release 24 hr Allergies Allergy/AdvReac Type Severity Reaction Status Date / Time house dust Allergy Intermediate Verified 08/02/23 12:18 ondansetron Allergy Intermediate ITCHY; Verified 08/02/23 12:18 [From ZOFRAN ( does not HYDROCHLORIDE)] work - makes nausea worse. adhesive tape Allergy Mild Red, itchy Verified 08/02/23 12:18 skin. animal dander Allergy Mild Verified 08/02/23 12:18 grass pollen-perennial rye, Allergy Mild Verified 08/02/23 12:18 standar red (food color) AdvReac Intermediate Hives, Verified 08/02/23 12:18 vomiting Review of Systems <Natalia Leung PA-C - Last Filed: 08/02/23 13:34> Review of Systems Narrative: SEE HPI Patient History <Natalia Leung PA-C - Last Filed: 08/02/23 13:34> Medical History Abnormal vaginal bleeding (~2020) Acid reflux (~1999) Anxiety (~2009) Asthma (~1997) Bipolar 1 disorder (~2015) Bronchitis (~05/2019) Depression (~2009) Fibromyalgia (~2017) Frequent nosebleeds Hypertension (~2019) Low back pain (~2013) Lumbar region somatic dysfunction Migraines (~2001) Pelvic somatic dysfunction Pneumonia (~2015) Sacral region somatic dysfunction Segmental and somatic dysfunction of abdomen and other regions Threatened in first trimester Vaginal bleeding during Family History Mother Impaired sense of smell Obesity Chronic tachycardia Father Depression Anxiety Bipolar 1 disorder Hypertension Hyperlipidemia Degenerative disc disease, lumbar Fibromyalgia Asthma Diabetes mellitus Grandmother History of hip replacement Knee joint replacement status Grandfather Alcoholic Liver disease Grandmother No problems noted. Grandfather Hypertension Social History marital status: number of children: 1 household members: spouse lives independently: Yes caregiver/support person: No housing: house pets and animals: No education level: high school occupational status: employed current occupational exposures/hazards: Yes (Stays away from pool chemicals. ) special ekta needs: No seatbelt use: always do you feel safe at home: Yes Smoking Status: Former smoker Tobacco: How many years used: 2 second hand exposure: Yes ( smokes, but he goes outside. ) alcohol intake: never substance use type: does not use during the past year weight has: remained stable well-balanced diet: daily or most days daily servings fruits/ve-4 caffeine: Yes (Coffee, 2 shots espresso about twice a week. ) Type(s) of exercise: swimming frequency: 3-4 times per week Smoking Status: Never smoker alcohol intake frequency: 3 or more drinks per day Substance Use Type: does not use Exam <Natalia Leung PA-C - Last Filed: 08/02/23 13:34> Initial Vital Signs Initial Vital Signs: Vital Signs Temperature 98.1 F 08/02/23 12:18 Pulse Rate 90 08/02/23 12:18 Respiratory Rate 08/02/23 12:18 Blood Pressure 130/92 H 08/02/23 12:18 Pulse Oximetry 99 08/02/23 12:18 Oxygen Delivery Method Room Air 08/02/23 12:18 Reviewed and are normal except for elevated blood pressure reading today. Const Other: Pleasantly conversing, no distress. Ambulatory. Guarding her right arm. Neck Other: Full active range of motion, no focal bony midline tenderness. Atraumatic. Resp Other: Clear to auscultation throughout all lang. Cardio Other: Regular rate and rhythm. Back/Spine/Pelvis Other: Atraumatic. Asymptomatic. Skin Other: Small superficial abrasion over the posterior right elbow. Proximally 1-2 cm. Extrem Other: No discoloration or obvious deformity of her right upper extremity. No focal tenderness in the shoulder. Able to flex and extend the elbow fully, she has reproducible plain along the ulnar aspect of her forearm. She has no snuffbox tenderness, full range of motion to her distal phalanges. Pinch mechanism is intact. Sensory is intact. Capillary refills normal. Focal tenderness along the dorsal ulnar wrist. No obvious soft tissue swelling or discoloration. She is demonstrating limited flexion extension ulnar and radial deviation as it causes her discomfort. Passively she is guarded but there is no obvious deformity or crepitation. <Tyler Felix MD - Last Filed: 08/02/23 16:29> Initial Vital Signs Initial Vital Signs: Vital Signs Temperature 98.1 F 08/02/23 12:18 Pulse Rate 90 08/02/23 12:18 Respiratory Rate 08/02/23 12:18 Blood Pressure 130/92 H 08/02/23 12:18 Pulse Oximetry 99 08/02/23 12:18 Oxygen Delivery Method Room Air 08/02/23 12:18 Course <Natalia Leung PA-C - Last Filed: 08/02/23 13:34> Orders Ordered: ED Orders 08/02/23 12:17 XR elbow RT min 3V Stat 08/02/23 12:18 XR wrist RT min 3V Stat Vital Signs Vital signs: Vital Signs - 8 hr 08/02/23 12:18 08/02/23 13:10 Temperature 98.1 F Pulse Rate 90 Respiratory Rate 24 Blood Pressure 130/92 H 139/101 H Pulse Oximetry 99 Oxygen Delivery Method Room Air <Tyler Felix MD - Last Filed: 08/02/23 16:29> Orders Ordered: ED Orders 08/02/23 12:17 XR elbow RT min 3V Stat 08/02/23 12:18 XR wrist RT min 3V Stat Vital Signs Vital signs: Vital Signs - 8 hr 08/02/23 12:18 08/02/23 13:10 Temperature 98.1 F Pulse Rate 90 Respiratory Rate 24 Blood Pressure 130/92 H 139/101 H Pulse Oximetry 99 Oxygen Delivery Method Room Air MDM - Extremity Injury (Upper) <Natalia Leung PA-C - Last Filed: 08/02/23 13:34> Imaging Data Extremity x-ray #1: My Impression: RIGHT ELBOW: No sail sign. No dislocation. Small olecranon osteophyte. Radiologist's Impression: PROCEDURE: XR ELBOW RT MIN 3V INDICATIONS: Fall today right elbow pain TECHNIQUE: 3 views of the elbow were acquired. COMPARISON: None. FINDINGS: Bones: No fractures or dislocations. No suspicious bony lesions. Soft tissues: No elbow joint effusion. No suspicious soft tissue calcifications. IMPRESSION: No acute bony abnormality or significant joint effusion. Dictated by: Tyler Pollard M.D. on 08/02/2023 at 12:01 Approved by: Tyler Pollard M.D. on 08/02/2023 at 12:01 Extremity x-ray #2: My Impression: RIGHT WRIST: no fracture identified. Radiologist's Impression: PROCEDURE: XR WRIST RT MIN 3V INDICATIONS: FOOSH today right wrist pain TECHNIQUE: For views of the wrist were acquired. COMPARISON: [facility], , XR WRIST LT MIN 3V, 11/19/2022, 11:53. FINDINGS: Bones: No fractures or dislocations. No suspicious bony lesions. Soft tissues: No suspicious soft tissue calcifications. IMPRESSION: No acute bony abnormality. Dictated by: Tyler Pollard M.D. on 08/02/2023 at 12:02 Approved by: Tyler Pollard M.D. on 08/02/2023 at 12:05 [facility] Narrative Medical decision making narrative: X-ray series of the wrist and elbow on the right side are both negative for acute bony abnormality. There is no obvious soft tissue swelling on exam, we will treat this as a sprain and strain as well as a contusion of her elbow. Placed her in a Velcro thumb spica splint as well as a sling and she feels comfortable. She is reexamined and has no focal deficits. I have asked her to follow up with her primary care provider. Obviously limited use of her right hand while at work, she does have a waterproof brace from her previous injury that she can try certainly. I have asked her to do some gentle range of motion to avoid stiffness, I encouraged her to ice over areas of focal pain. And please follow-up with your primary care provider. Some injuries do arise a few days after the initial injury so please seek medical attention if you have any new symptoms or concerns. You should see some gradual improvement in the next couple of weeks. Tylenol or ibuprofen as needed for pain. Red flag warning signs reviewed in detail. Seek medical attention if you have the worst pending your life, any numbness tingling weakness changes in the temperature of your skin they become cold or hot or any other worrisome symptoms. Discharge Plan Departure Patient Disposition: Home Clinical Impression: Other specified sprain of right wrist, initial encounter, Abrasion of skin of right elbow Contusion of right elbow and forearm Qualifiers: Encounter type: initial encounter Qualified Code(s): S50.11XA - Contusion of right forearm, initial encounter Instructions: DI for Wrist Sprain Activity Restrictions/Additional Instructions: Please wear the brace and sling at all times, you can wear the sling at bedtime, you may remove for showering but use caution and try to prevent re-injury. I recommend you do some gentle range of motion movements such as flexing and extending her elbow to minimize stiffness. Regarding your wrist move your fingers in the same fashion to minimize any stiffness. Please ice your wrist and elbow 10-15 minutes at a time not directly over skin as you can cause freezer burn so use a washcloth, please follow-up with your primary care provider in the next 1-2 weeks. Please return to the emergency department if you have any new symptoms or worsening symptoms such as swelling, redness, numbness or tingling or new injuries. As far as work I think you should have limited use of the right wrist I think he will feel better in the swimming pool as far as antigravity, but use your swimming wrist brace and activities as tolerated. You should see some gradual improvement in the next 1-2 weeks. Tylenol or ibuprofen as needed for pain. Prescriptions: No Action prenat.vits,lisseth,bpi-locu-wiyfp Tablet 1 tab PO DAILY nifedipine 30 mg Tablet Extended Release 24hr 30 mg PO DAILY Qty: 30 0RF ibuprofen 600 mg Tablet 600 mg PO Q6HR PRN (Reason: Pain, Mild (1-3)) Qty: 20 0RF labetalol 100 mg Tablet 200 mg PO TID Qty: 90 0RF labetalol 200 mg tablet 200 mg PO TID Qty: 90 0RF Referrals: Miscellaneous,Doctor, [Primary Care Provider] - Stand Alone Forms: Patient Portal/API ED Sign-out <Tyler Felix MD - Last Filed: 08/02/23 16:29> Cosign ED Attending [facility] Attestation: I was immediately available in the department for consultation. ?This documentation has been reviewed and I agree with assessment and plan. Supervised by Tyler Felix MD
[2023-08-02 12:18] VITALS: BP 130/92; PULSE 90; RESP 24; TEMP 36.7; O2SAT 99; BMI 42.3
[2023-08-02 13:10] VITALS: BP 139/101
== END 2023-08-02 13:20 | disposition home or self-care (01) ==
PROVIDERS: Emergency Provider Physician Assistant Medical
DX: S63.501A Unspecified sprain of right wrist, initial encounter (principal); S50.11XA Contusion of right forearm, initial encounter; W18.30XA Fall on same level, unspecified, initial encounter
CPT/HCPCS: 73080; 73110; 99283